=== PATIENT | female | born 1970 | race Caucasian/White ===

== ENCOUNTER 2019-09-17 11:34 | Emergency (ER) | payer MEDICARE, MEDICAID, SELFPAY ==
[2019-09-17 11:33] VITALS: BP 141/83; PULSE 97; RESP 16; TEMP 36.6; O2SAT 96; BMI 41.5
[2019-09-17 11:39] VITALS: O2SAT 97
--- NOTE | 2019-09-17 11:45 | ED_ITS ---
Entered by Nimo Evans, acting as scribe for HPI - Syncope General: Chief Complaint: Syncope Stated Complaint: near syncope/possible seizure Time Seen by Provider: 09/17/19 12:11 History of Present Illness: HPI narrative: Reviewed chart with the midlevel. She is seen the patient will discharge patient with cystitis follow-up with primary care provider return if worsens PFSH ED PFSH: Statuses (acute, chronic, etc) shown below reflect problem list status as previously entered and may not be historically accurate Social History Smoking and tobacco status: current every day smoker Physical Exam Const: COMMON NORMALS: no apparent distress GENERAL APPEARANCE: cooperative and comfortable ORIENTATION/CONSCIOUSNESS: Yes awake Eye: COMMON NORMALS: PERRL, EOMs intact bilaterally, conjunctivae normal and no scleral icterus CONJUNCTIVA: Yes conjunctivae normal PUPIL: Yes PERRL Lymph: LYMPHATIC: no lymphadenopathy noted and no lymphedema noted Resp: COMMON NORMALS: normal respiratory effort, no retractions, no use of accessory muscles and clear to auscultation bilaterally AUSCULTATION: clear to auscultation bilaterally Cardio: COMMON NORMALS: regular rate, regular rhythm and no murmurs RATE: regular rate RHYTHM: regular rhythm Course Vital Signs: Vital signs: Vital Signs Temperature 98 F 09/17/19 11:33 Pulse Rate 100 09/17/19 14:28 Respiratory Rate 16 09/17/19 14:28 Blood Pressure 158/101 09/17/19 14:28 Pulse Oximetry 98 09/17/19 14:28 MDM - Syncope Lab Data: Labs: Lab Results 09/17/19 09/17/19 09/17/19 Range/Units 12:27 12:27 13:05 WBC 9.2 (4.0-10.0) 10^3/ uL RBC 4.47 (4.1-5.3) 10^6/u L Hgb 13.4 (11.5-15.3) g/dL Hct 40.6 (37.0-47.0) % MCV 90.8 (81-99) fL MCH 30.0 (28.0-34.0) pg MCHC 33.0 (30.0-36.0) g/dL RDW 13.8 (12.1-15.1) % Plt Count 274 (130-400) 10^3/c mm MPV 9.4 (7.4-10.4) fL Total Counted 100 (0-100) Segmented Neutroph ils 78 % Band Neutrophils 5.0 % Lymphocytes (Manua l) 15 % Monocytes (Manual) 2.0 % Absolute Monocytes 0.2 (0.1-0.6) 10^3/c mm Platelet Estimate Normal (Normal) Giant Platelets Trace Sodium (136-145) mmol/L Potassium (3.5-5.1) mmol/L Chloride (98-107) mmol/L Carbon Dioxide (22-29) mmol/L Anion Gap (5-19) BUN (6-20) mg/dL Creatinine (0.5-0.9) mg/dL GFR Calculation (90-130) mL/min Glucose (74-109) mg/dL Calcium (8.5-10.5) mg/dL Magnesium (1.7-2.3) mg/dL Total Bilirubin (0.15-1.2) mg/dL AST (0-32) U/L ALT (0-33) U/L Alkaline Phosphata se (35-105) IU/L Total Protein (6.6-8.7) g/dL Albumin (3.5-5.2) g/dL Globulin (1.3-4.6) g/dL Urine Color Yellow (Yellow) Urine Appearance Hazy A (CLEAR) Urine pH 5 (5-7) Ur Specific Gravit y 1.015 (1.005-1.030) Urine Protein Neg (Negative) Urine Glucose (UA) Norm (Normal) Urine Ketones Negative (Negative) Urine Occult Blood Neg (Negative) Urine Nitrate Positive H (Negative) Urine Bilirubin Neg (NEGATIVE) Urine Urobilinogen Norm (Negative) mg/dL Ur Leukocyte Sara ase 1+ H (Negative) Urine RBC 0-4 H (0-2) /hpf Urine WBC 15-25 H (0-5) /hpf Ur Squamous Epith Cells 5-10 H (0-5) Urine Bacteria 2+ H (NONE) Hyaline Casts Rare Coarse Granular Ca sts Rare /lpf Urine Mucus Trace Urine Opiates Scre en Negative (Negative) ng/mL Ur Barbiturates Sc reen Negative (Negative) ng/mL Ur Phencyclidine S crn Negative (Negative) ng/mL Ur Amphetamines Sc reen Positive H (Negative) ng/mL U Benzodiazepines Scrn Positive H (Negative) ng/mL Urine Cocaine Scre en Negative (Negative) ng/mL U Marijuana (THC) Screen Negative (Negative) ng/mL Ethyl Alcohol (0-10) mg/dL 09/17/19 Range/Units 13:05 WBC (4.0-10.0) 10^3/ uL RBC (4.1-5.3) 10^6/u L Hgb (11.5-15.3) g/dL Hct (37.0-47.0) % MCV (81-99) fL MCH (28.0-34.0) pg MCHC (30.0-36.0) g/dL RDW (12.1-15.1) % Plt Count (130-400) 10^3/c mm MPV (7.4-10.4) fL Total Counted (0-100) Segmented Neutroph ils % Band Neutrophils % Lymphocytes (Manua l) % Monocytes (Manual) % Absolute Monocytes (0.1-0.6) 10^3/c mm Platelet Estimate (Normal) Giant Platelets Sodium 139 (136-145) mmol/L Potassium 3.6 (3.5-5.1) mmol/L Chloride 102 (98-107) mmol/L Carbon Dioxide 25 (22-29) mmol/L Anion Gap 15.6 (5-19) BUN 7 (6-20) mg/dL Creatinine 0.8 (0.5-0.9) mg/dL GFR Calculation 75.6 L (90-130) mL/min Glucose 119 H (74-109) mg/dL Calcium 10.3 (8.5-10.5) mg/dL Magnesium 2.3 (1.7-2.3) mg/dL Total Bilirubin 0.5 (0.15-1.2) mg/dL AST 22 (0-32) U/L ALT 23 (0-33) U/L Alkaline Phosphata se 110 H (35-105) IU/L Total Protein 7.8 (6.6-8.7) g/dL Albumin 4.5 (3.5-5.2) g/dL Globulin 3.3 (1.3-4.6) g/dL Urine Color (Yellow) Urine Appearance (CLEAR) Urine pH (5-7) Ur Specific Gravit y (1.005-1.030) Urine Protein (Negative) Urine Glucose (UA) (Normal) Urine Ketones (Negative) Urine Occult Blood (Negative) Urine Nitrate (Negative) Urine Bilirubin (NEGATIVE) Urine Urobilinogen (Negative) mg/dL Ur Leukocyte Sara ase (Negative) Urine RBC (0-2) /hpf Urine WBC (0-5) /hpf Ur Squamous Epith Cells (0-5) Urine Bacteria (NONE) Hyaline Casts Coarse Granular Ca sts /lpf Urine Mucus Urine Opiates Scre en (Negative) ng/mL Ur Barbiturates Sc reen (Negative) ng/mL Ur Phencyclidine S crn (Negative) ng/mL Ur Amphetamines Sc reen (Negative) ng/mL U Benzodiazepines Scrn (Negative) ng/mL Urine Cocaine Scre en (Negative) ng/mL U Marijuana (THC) Screen (Negative) ng/mL Ethyl Alcohol < 10 (0-10) mg/dL Discharge Plan Discharge Patient Disposition: Home, Self-Care Clinical Impression: Syncope, near UTI (urinary tract infection) Qualifiers: Urinary tract infection type: acute cystitis Hematuria presence: without hematuria Qualified Code(s): N30.00 - Acute cystitis without hematuria Condition: Stable Prescriptions: New Macrobid 100 mg capsule 100 mg PO BID 5 Days Qty: 10 RF: 0 No Action ropinirole 1 mg tablet 1 mg PO BEDTIME RF: 0 citalopram 40 mg tablet 40 mg PO DAILY RF: 0 ibuprofen 800 mg tablet 800 mg PO TID PRN (Reason: pain) RF: 0 sumatriptan succinate 50 mg tablet 50 mg PO PRN PRN (Reason: Migraine Headache) RF: 0 hydrocodone-acetaminophen 10-325 mg tablet 1 tab PO QID PRN (Reason: Pain) RF: 0 alprazolam 0.5 mg tablet 0.5 mg PO BID PRN (Reason: anxiety) RF: 0 furosemide 20 mg tablet 20 mg PO DAILY RF: 0 zolpidem 10 mg tablet 10 mg PO BEDTIME RF: 0 oxybutynin chloride 5 mg tablet 5 mg PO BID RF: 0 topiramate 100 mg tablet 100 mg PO BID PRN (Reason: Headache) RF: 0 Lyrica 75 mg capsule 75 mg PO BID RF: 0 Discharge Orders: Discharge Order (Routine); Ordered 09/17/19 Ordered By: Brittany Coyle Referrals: Derrick Whitaker [Primary Care Provider] - (Please see for recheck) Discharge Diet: Usual diet Discharge Activity: Resume usual activity Patient Instructions: Methamphetamine Abuse (ED) Activity Restrictions/Additional Instructions: Please return to the ER with any worsening of symptoms Discharge Date/Time: 09/17/19 14:29 Coding Level of Care Code 

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
--- NOTE | 2019-09-17 12:18 | ECG_ITS ---
Measurements Intervals [place] Rate: 95 P: 74 IN: 170 QRS: 79 QRSD: 112 T: 46 QT: 378 QTc: 475 SINUS RHYTHM LOW QRS VOLTAGE IN PRECORDIAL LEADS [QRS DEFLECTION < 1.0 mV IN CHEST LEADS] MODERATE INTRAVENTRICULAR CONDUCTION DELAY [110+ ms QRS DURATION] No previous ECG available for comparison Electronically Signed On 09-17-2019 21:00:31 COMPUTER SCIENTIST by Denice Moreno M.D. [email or web address]
[2019-09-17 12:29] VITALS: BP 154/78; PULSE 98; O2SAT 96
[2019-09-17 13:09] LABS: Hematocrit 40.6 % (37.0-47.0); Hemoglobin 13.4 g/dL (11.5-15.3); Mean Corpuscular Volume 90.8 fL (81-99); Mean Platelet Volume 9.4 fL (7.4-10.4); Platelet Count 274 10^3/cmm (130-400); Red Blood Count 4.47 10^6/uL (4.1-5.3); Red Cell Distribution Width 13.8 % (12.1-15.1); White Blood Count 9.2 10^3/uL (4.0-10.0)
[2019-09-17 13:09] LABS: Urine Appearance Hazy (CLEAR); Urine Color Yellow (Yellow); pH Urine 5 (5-7)
[2019-09-17 13:10] LABS: Add Urine Microscopic? YES; Bilirubin Urine Neg (NEGATIVE); Blood Urine Neg (Negative); Glucose Urine UA Norm (Normal); Ketones Urine Negative (Negative); Leukocyte Esterase Urine 1+ (Negative); Nitrate Urine Positive (Negative); Protein Urine Neg (Negative); Specific Gravity, Urine 1.015 (1.005-1.030); Urobilinogen Urine Norm (Negative)
[2019-09-17 13:14] LABS: RBC Urine 0-4 /hpf (0-2); WBC Urine 15-25 /hpf (0-5)
[2019-09-17 13:15] LABS: Bacteria Urine 2+; Mucus Urine TRACE
[2019-09-17 13:16] LABS: Add Urine Culture? Yes; Coarse Granular Casts Urine RARE /lpf; Hyaline Casts Urine RARE
[2019-09-17 13:17] LABS: Barbiturates Screen Urine Negative (Negative); Benzodiazepines Screen Urine Positive (Negative); Cocaine Screen Urine Negative (Negative); Opiate Screen Urine Negative (Negative); PCP Screen Urine Negative (Negative); THC Screen Urine Negative (Negative)
[2019-09-17 13:21] LABS: Amphetamines Screen Urine Positive (Negative)
[2019-09-17 13:25] LABS: Absolute Segmented Neutrophil 7.1 10/cmm (1.6-7.1); Band Neutrophils Absolute 0.5 10^3/cmm (0.0-1.2); Giant Platelets Trace; Lymphocytes 15 %; Monocytes Absolute 0.2 10^3/cmm (0.1-0.6); Platelet Estimate Normal (Normal); Segmented Neutrophils 78 %; Total Cells Counted 100 (0-100)
[2019-09-17 13:27] LABS: Alanine Aminotransferase 23 U/L (0-33); Albumin Level 4.5 g/dL (3.5-5.2); Alkaline Phosphatase 110 IU/L (35-105); Anion Gap 15.6 (5-19); Aspartate Amino Transferase 22 U/L (0-32); Blood Urea Nitrogen 7 mg/dL (6-20); Calcium 10.3 mg/dL (8.5-10.5); Carbon Dioxide 25 mmol/L (22-29); Chloride 102 mmol/L (98-107); Globulin 3.3 g/dL (1.3-4.6); Glomerular Filtration Rate 75.6 mL/min (90-130); Glucose 119 mg/dL (74-109); Magnesium 2.3 mg/dL (1.7-2.3); Potassium 3.6 mmol/L (3.5-5.1); Sodium 139 mmol/L (136-145); Total Bilirubin 0.5 mg/dL (0.15-1.2); Total Protein 7.8 g/dL (6.6-8.7)
[2019-09-17 13:35] LABS: Alcohol Level < 10 mg/dL (0-10)
[2019-09-17 14:05] VITALS: BP 158/103; PULSE 103; RESP 14; O2SAT 96
[2019-09-17 14:28] VITALS: BP 158/101; PULSE 100; RESP 16; O2SAT 98
== END 2019-09-17 14:29 | disposition home or self-care (01) ==
PROVIDERS: Emergency Provider Registered Nurse; Family Provider Family Medicine; PCP Family Medicine
DX: R55 Syncope and collapse (principal); N30.00 Acute cystitis without hematuria; F17.210 Nicotine dependence, cigarettes, uncomplicated
CPT/HCPCS: 80053; 80307; 81001; 83735; 85007; 85027; 87077; 87086; 87186; 93005; 99283; A9270

== ENCOUNTER 2019-09-21 06:35 | Emergency (ER) | payer MEDICARE, MEDICAID, SELFPAY ==
[2019-09-21 06:36] VITALS: PULSE 67; RESP 16; TEMP 36.8; O2SAT 96; BMI 43.2
--- NOTE | 2019-09-21 06:38 | W.ED.GENADLT ---
HPI - General Adult General: Chief complaint: Abdominal Pain Stated complaint: ABD PAIN Time Seen by Provider: 09/21/19 06:38 History of Present Illness: HPI narrative: 49-year-old female presents complaining of right lower quadrant abdominal pain that began overnight she had a single episode of diarrhea denies hematochezia melena hematemesis coffee-ground emesis denies dysuria urgency or frequency she was doing well up until going to bed last night. Associated symptoms: Deny chest pain, dyspnea, malaise, nausea, rash or vomiting Review of Systems Const: Denies: fever, chills, body aches, change in appetite, fatigue or malaise ENMT: Denies: throat pain, ear pain, nasal discharge or nasal congestion Card: Denies: chest pain, edema, shortness of breath on exertion or shortness of breath when lying down Resp: Denies: shortness of breath, productive cough or non-productive cough GI: Denies: abdominal pain, nausea, vomiting, vomiting blood, coffee grounds in vomit, diarrhea, constipation, bloating, blood in stool or black tarry stool : Denies: flank pain, difficulty urinating, painful urination, urinary frequency or urinary urgency Skin/Breast: Denies: rash or itching PFSH ED PFSH: Statuses (acute, chronic, etc) shown below reflect problem list status as previously entered and may not be historically accurate Medical History History of uterine fibroid (Acute) Surgical History H/O hysterectomy for benign disease (Acute) History of cholecystectomy (Acute) History of total right hip arthroplasty (Acute) Social History Smoking and tobacco status: current every day smoker Physical Exam Const: COMMON NORMALS: no apparent distress GENERAL APPEARANCE: cooperative and comfortable ORIENTATION/CONSCIOUSNESS: Yes awake, Yes oriented to person, Yes oriented to place and Yes oriented to time HENMT: COMMON NORMALS: normocephalic, head/scalp atraumatic, hearing grossly normal bilaterally, external ears normal, EAC's normal, TM's normal bilaterally, nasal mucous membranes and turbinates normal, moist oral mucous membranes and oropharynx normal HEAD & SCALP: normocephalic and atraumatic NOSE: nasal mucous membranes and turbinates normal EXTERNAL EAR: Yes external ears normal EXTERNAL AUDITORY CANAL: EAC's normal TYMPANIC MEMBRANE: TM's normal bilaterally Eye: COMMON NORMALS: PERRL, EOMs intact bilaterally, conjunctivae normal and no scleral icterus CONJUNCTIVA: Yes conjunctivae normal PUPIL: Yes PERRL Neck/C-Spine: COMMON NORMALS: full ROM, no lymphadenopathy, supple and no JVD Lymph: LYMPHATIC: no lymphadenopathy noted and no lymphedema noted Resp: COMMON NORMALS: normal respiratory effort, no retractions, no use of accessory muscles and clear to auscultation bilaterally AUSCULTATION: clear to auscultation bilaterally Cardio: COMMON NORMALS: no JVD, regular rate, regular rhythm and no murmurs RATE: regular rate RHYTHM: regular rhythm GI: COMMON NORMALS: soft to palpation and no hepatosplenomegaly INSPECTION: Yes pannus present AUSCULTATION: Yes normoactive bowel sounds PALPATION: Yes soft, No tender, No guarding and Yes no hepatosplenomegaly RECTAL EXAM: tenderness Extremity: COMMON NORMALS: normal to inspection, normal capillary refill, no clubbing, cyanosis or edema, no calf tenderness and no pedal edema Neuro: SENSORIUM/ORIENTATION: Yes oriented to person, Yes oriented to place and Yes oriented to time Skin: COMMON NORMALS: no rashes or lesions noted GENERAL SKIN EXAM: no rashes or lesions noted Course ED course: Discussed findings with the patient will start on tamsulosin and Zofran she does not of signs of infection. Already has hydrocodone to use for pain we will set her up to see Dr. Friend. Vital Signs: Vital signs: Vital Signs Temperature 98.3 F 09/21/19 06:36 Pulse Rate 70 09/21/19 10:02 Respiratory Rate 16 09/21/19 10:02 Blood Pressure 145/67 09/21/19 10:02 Pulse Oximetry 93 09/21/19 10:02 MDM - General Adult Lab Data: Labs: Lab Results 09/21/19 09/21/19 09/21/19 Range/Units 06:00 06:00 08:44 WBC 7.9 (4.0-10.0) 10^3/ uL RBC 4.09 L (4.1-5.3) 10^6/u L Hgb 12.4 (11.5-15.3) g/dL Hct 37.4 (37.0-47.0) % MCV 91.4 (81-99) fL MCH 30.3 (28.0-34.0) pg MCHC 33.2 (30.0-36.0) g/dL RDW 13.6 (12.1-15.1) % Plt Count 259 (130-400) 10^3/c mm MPV 10.4 (7.4-10.4) fL Neut % (Auto) 67.2 % Lymph % (Auto) 25.2 % [place] % (Auto) 5.7 % Eos % (Auto) 1.1 % Baso % (Auto) 0.5 % Neut # (Auto) 5.3 (1.8-7.7) 10^3/u L Lymph # (Auto) 2.0 (0.8-4.8) 10^3/u L [place] # (Auto) 0.5 (0.2-0.9) 10^3/u L Eos # (Auto) 0.1 (0.0-0.8) 10^3/u L Baso # (Auto) 0.0 (0.0-0.1) 10^3/u L Nucleated RBC % (a uto) 0 % Nucleated RBCs # 0.0 /100WBC Sodium 140 (136-145) mmol/L Potassium 3.4 L (3.5-5.1) mmol/L Chloride 101 (98-107) mmol/L Carbon Dioxide 24 (22-29) mmol/L Anion Gap 18.4 (5-19) BUN 6 (6-20) mg/dL Creatinine 0.6 (0.5-0.9) mg/dL GFR Calculation 105.4 (90-130) mL/min Glucose 151 H (65-115) mg/dL Calcium 9.5 (8.5-10.5) mg/dL Total Bilirubin 0.3 (0.15-1.2) mg/dL AST 20 (0-32) U/L ALT 20 (0-33) U/L Alkaline Phosphata se 88 (35-105) IU/L Total Protein 6.6 (6.6-8.7) g/dL Albumin 4.0 (3.5-5.2) g/dL Globulin 2.6 (1.3-4.6) g/dL Lipase 26 (13-60) U/L Urine Color Yellow (Yellow) Urine Appearance Clear (CLEAR) Urine pH 5.0 (5-7) Ur Specific Gravit y 1.015 (1.005-1.030) Urine Protein Trace (Negative) Urine Glucose (UA) Norm (Normal) Urine Ketones Negative (Negative) Urine Occult Blood Neg (Negative) Urine Nitrate Negative (Negative) Urine Bilirubin Neg (NEGATIVE) Urine Urobilinogen Norm (Negative) mg/dL Ur Leukocyte Sara ase Negative (Negative) Urine RBC None (0-2) /hpf Urine WBC None (0-5) /hpf Ur Squamous Epith Cells 0-4 H (0-5) Urine Bacteria Trace (NONE) Urine Mucus Trace Discharge Plan Discharge Patient Disposition: Home, Self-Care Clinical Impression: Calculus of kidney Condition: Stable Prescriptions: New tamsulosin 0.4 mg capsule 0.4 mg PO DAILY Qty: 20 RF: 0 Zofran 4 mg tablet 4 mg PO Q6H PRN (Reason: nausea and vomiting) Qty: 20 RF: 0 No Action ropinirole 1 mg tablet 1 mg PO BEDTIME RF: 0 citalopram 40 mg tablet 40 mg PO DAILY RF: 0 ibuprofen 800 mg tablet 800 mg PO TID PRN (Reason: pain) RF: 0 sumatriptan succinate 50 mg tablet 50 mg PO PRN PRN (Reason: Migraine Headache) RF: 0 hydrocodone-acetaminophen 10-325 mg tablet 1 tab PO QID PRN (Reason: Pain) RF: 0 alprazolam 0.5 mg tablet 0.5 mg PO BID PRN (Reason: anxiety) RF: 0 furosemide 20 mg tablet 20 mg PO DAILY RF: 0 zolpidem 10 mg tablet 10 mg PO BEDTIME RF: 0 oxybutynin chloride 5 mg tablet 5 mg PO BID RF: 0 topiramate 100 mg tablet 100 mg PO BID PRN (Reason: Headache) RF: 0 Lyrica 75 mg capsule 75 mg PO BID RF: 0 Macrobid 100 mg capsule 100 mg PO BID 5 Days Qty: 10 RF: 0 Discharge Orders: Discharge Order (Routine); Ordered 09/21/19 Ordered By: Ezekiel Guardado Referrals: Friend,Spenser, MD [Physician] - (Follow up on renal stone) Discharge Diet: Usual diet Discharge Activity: Resume usual activity Discharge Date/Time: 09/21/19 10:03 Coding Level of Care Code ED Stained Glass Joiner for Nasimg Fwd 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
--- NOTE | 2019-09-21 06:45 | PC.NURSE ---
Patient states that her lower right quadrant on her abdomen started hurting today at 0300. Patient states that the pain kept getting worse. Patient is rating pain 4/10.
[2019-09-21 06:47] VITALS: BP 154/71; PULSE 66; RESP 14; O2SAT 92
--- NOTE | 2019-09-21 06:54 | CTR_ITS ---
PROCEDURE INFORMATION: Exam: CT Abdomen And Pelvis With Contrast Exam date and time: 09/21/2019 7:11 AM Age: 49 years old Clinical indication: Abdominal pain; Localized; Right; Prior surgery; Surgery date: 6+ months; Surgery type: Gastric sleeve choley hyst; Additional info: Abd pain TECHNIQUE: Imaging protocol: Computed tomography of the abdomen and pelvis with intravenous contrast. Total DLP: 2069.56 mGy-cm Radiation optimization: All CT scans at this facility use at least one of these dose optimization techniques: automated exposure control; mA and/or kV adjustment per patient size (includes targeted exams where dose is matched to clinical indication); or iterative reconstruction. Contrast material: OMNI; Contrast volume: 95 ml; Contrast route: IV; COMPARISON: No relevant prior studies available. FINDINGS: Liver: Normal. No mass. Gallbladder and bile ducts: Normal. No calcified stones. No ductal dilation. Pancreas: Normal. No ductal dilation. Spleen: Normal. No splenomegaly. Adrenals: Normal. No mass. Kidneys and ureters: 4 mm calcification mid pole right kidney hydronephrosis and hydroureter secondary to a calcification within the distal ureter proximal to the right ureterovesical junction measuring approximately 5 mm. Stomach and bowel: Prior gastric stapling along the greater curvature. Appendix: What is believed to be the appendix is normal in appearance. Nevertheless, there is no discrete evidence of appendicitis. Intraperitoneal space: No free fluid within the pelvis or within the dependent portions of the peritoneum. Vasculature: Unremarkable. No abdominal aortic aneurysm. Lymph nodes: Unremarkable. No enlarged lymph nodes. Bladder: Unremarkable as visualized. Reproductive: Prior hysterectomy. Bones/joints: Hip arthroplasty on the right. Metallic artifact henders characterization of the pelvic structures. Soft tissues: Unremarkable. Other findings: No acute intra-abdominal process. No inflammatory process. No obstruction. CT/CT abdomen pelvis w con* [id number] IMPRESSION: 1. Hydronephrosis and hydroureter secondary to a calcification within the distal ureter proximal to the right ureterovesical junction measuring approximately 5 mm. 2. No acute intra-abdominal process. No inflammatory process. No obstruction. 3. No free fluid within the pelvis or within the dependent portions of the peritoneum. Radiation Dose CTDIVOL = (mGy): DLP = 2069.56 (mGy-cm)
[2019-09-21 07:11] VITALS: BP 152/61
[2019-09-21] MEDS: iohexol 300 mg/mL 100 mL Btl 95 ML IV (07:13)
[2019-09-21 07:18] LABS: Basophils % 0.5 %; Eosinophils # 0.1 10^3/uL (0.0-0.8); Eosinophils % 1.1 %; Hematocrit 37.4 % (37.0-47.0); Hemoglobin 12.4 g/dL (11.5-15.3); Lymphocytes % 25.2 %; Mean Corpuscular HGB Conc 33.2 g/dL (30.0-36.0); Mean Corpuscular Hemoglobin 30.3 pg (28.0-34.0); Mean Corpuscular Volume 91.4 fL (81-99); Mean Platelet Volume 10.4 fL (7.4-10.4); Monocytes # 0.5 10^3/uL (0.2-0.9); Monocytes % 5.7 %; Neutrophils # 5.3 10^3/uL (1.8-7.7); Neutrophils % 67.2 %; Nucleated Red Blood Cells % 0 %; Platelet Count 259 10^3/cmm (130-400); Red Blood Count 4.09 10^6/uL (4.1-5.3); Red Cell Distribution Width 13.6 % (12.1-15.1); White Blood Count 7.9 10^3/uL (4.0-10.0)
[2019-09-21 07:25] VITALS: RESP 20
[2019-09-21] MEDS: morphine 4 mg/mL SDV 1 mL IVP (07:25)
[2019-09-21] MEDS: ondansetron 2 mg/ML SDV 2 mL 4 MG IVP (07:25)
[2019-09-21] MEDS: sodium chloride 0.9% 1,000 ML 999 ML IV (07:25)
[2019-09-21 07:45] VITALS: PULSE 72; RESP 15; O2SAT 93
[2019-09-21 07:45] LABS: Alanine Aminotransferase 20 U/L (0-33); Alkaline Phosphatase 88 IU/L (35-105); Anion Gap 18.4 (5-19); Aspartate Amino Transferase 20 U/L (0-32); Blood Urea Nitrogen 6 mg/dL (6-20); Calcium 9.5 mg/dL (8.5-10.5); Carbon Dioxide 24 mmol/L (22-29); Chloride 101 mmol/L (98-107); Globulin 2.6 g/dL (1.3-4.6); Glomerular Filtration Rate 105.4 mL/min (90-130); Glucose 151 mg/dL (65-115); Lipase 26 U/L (13-60); Potassium 3.4 mmol/L (3.5-5.1); Sodium 140 mmol/L (136-145); Total Bilirubin 0.3 mg/dL (0.15-1.2); Total Protein 6.6 g/dL (6.6-8.7)
[2019-09-21 09:51] LABS: Add Urine Microscopic? YES; Bilirubin Urine Neg (NEGATIVE); Blood Urine Neg (Negative); Glucose Urine UA Norm (Normal); Ketones Urine Negative (Negative); Leukocyte Esterase Urine Negative (Negative); Nitrate Urine Negative (Negative); Protein Urine Trace (Negative); Specific Gravity, Urine 1.015 (1.005-1.030); Urine Appearance Clear (CLEAR); Urine Color Yellow (Yellow); Urobilinogen Urine Norm (Negative)
[2019-09-21 10:01] LABS: Add Urine Culture? No; Bacteria Urine TRACE; Mucus Urine TRACE; Squamous Epithelial Cell Urine 0-4 (0-5)
[2019-09-21 10:02] VITALS: BP 145/67; PULSE 70; RESP 16; O2SAT 93
--- NOTE | 2019-09-24 10:40 | DCPLANNER ---
optical engineering manager had message to schedule a follow up appointment for patient with Dr. Friend. optical engineering manager called the office of Dr. Friend, spoke with Nikole. optical engineering manager gave clinic patients information, was told that patients information would be printed and given to Faustina for review. Clinic will call patient with appointment information, cyanide case hardener will call for appointment information.
--- NOTE | 2019-09-28 14:54 | DCPLANNER ---
pst manager called the office of Dr. Friend, to confirm if a follow up appointment had been scheduled. pst manager was told that the appointment had been cancelled, due to patient not needing to see Dr. Friend at this time.
== END 2019-09-21 10:03 | disposition home or self-care (01) ==
PROVIDERS: Emergency Provider Family Medicine; Family Provider Family Medicine; PCP Family Medicine
DX: N20.0 Calculus of kidney (principal); F17.210 Nicotine dependence, cigarettes, uncomplicated
CPT/HCPCS: 74177; 80053; 81001; 83690; 85025; 96360; 96361; 96374; 96375; 99283; A9270; J2270; J2405; J7030; Q9967

== ENCOUNTER 2020-03-02 14:00 | Emergency (ER) | payer OTHER, MEDICARE, MEDICAID, SELFPAY ==
[2020-03-02 14:02] VITALS: BMI 47.4
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
[2020-03-02 14:15] VITALS: BP 156/69; PULSE 67; RESP 15; O2SAT 94
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
[2020-03-02 15:25] VITALS: BP 128/71; PULSE 73; RESP 16; O2SAT 95
== END 2020-03-02 15:26 | disposition home or self-care (01) ==
PROVIDERS: Emergency Provider Family Medicine; PCP Family Medicine
DX: G89.11 Acute pain due to trauma (principal); M25.511 Pain in right shoulder; Z96.611 Presence of right artificial shoulder joint; V89.2XXA Person injured in unspecified motor-vehicle accident, traffic, initial encounter; F17.210 Nicotine dependence, cigarettes, uncomplicated
CPT/HCPCS: 12345; 73030; 99283

== ENCOUNTER 2020-03-21 08:08 | Outpatient (CLI) | payer MEDICARE, MEDICAID, SELFPAY ==
--- NOTE | 2020-03-21 | CT_ITS ---
NOTE: Report was unsigned for reason: Order was edited. Original Signature date and time was: 03/21/20 @ 0944 WS: [id number] NONCONTRAST CT OF THE RIGHT SHOULDER TECHNIQUE: Noncontrast CT right shoulder with coronal and sagittal reformatted images. CLINICAL INFORMATION: HX OF RIGHT SHOULDER REPLACEMENT COMPARISON: None. DLP: 916.[address] scans at [facility] use at least one of these dose optimization techniques: automated exposure control; mA and/or kV adjustment per patient size (includes targeted exams where dose is matched to clinical indication); or iterative reconstruction. FINDINGS: Images degraded by beam hardening artifact from hardware. Reversed right shoulder arthroplasty appears in good position. Normal glenoid and humeral component. No dislocation. Hardware appears well seated. Glenoid and humeral components appear well seated. Distal clavicle appears normal. Normal AC joint. Subacromial space is well-preserved. TINY NONDISPLACED FRACTURE INVOLVING THE ANTERIOR LATERAL ACROMION. No evidence of healing. Subacromial space preserved. Mild degenerative arthritis AC joint. No other visualized fractures. Right lung is well aerated. No axillary lymphadenopathy. [facility] CT/CT shoulder RT wo con* [id number] IMPRESSION: 1. Images degraded by beam [place] artifact from arthroplasty. 2. Reversed right total shoulder arthroplasty appears in good position. No dis location. No hardware loosening. 3. Distal clavicle is normal. 4. Small nondisplaced hairline fracture involving the anterior lateral aspect of the acromion. No evidence of interval healing.
== END 2020-03-21 08:09 | disposition home or self-care (01) ==
LOC: RADWPI 08:14
PROVIDERS: PCP Family Medicine; Visit Provider Orthopaedic Surgery
DX: Z96.611 Presence of right artificial shoulder joint (principal); S42.124A Nondisplaced fracture of acromial process, right shoulder, initial encounter for closed fracture; X58.XXXA Exposure to other specified factors, initial encounter
CPT/HCPCS: 73200

== ENCOUNTER 2020-10-18 20:25 | Emergency (ER) | payer MEDICARE, MEDICAID, SELFPAY ==
[2020-10-18] VITALS (8 sets, daily range): BP systolic 148–192; BP diastolic 60–94; PULSE 84–106; RESP 18–26; TEMP 36.7; O2SAT 97–99; BMI 49.9
--- NOTE | 2020-10-18 20:38 | ED_ITS ---
HPI - Syncope General: Chief Complaint: Syncope Stated Complaint: PASSED OUT Time Seen by Provider: 10/18/20 20:33 Source: patient Mode of arrival: EMS Limitations: no limitations History of Present Illness: HPI narrative: Patient is a 50-year-old female who presents to ED today via EMS for complaints of a passing out episode. The patient tells me that she was riding the backseat of a vehicle when episode happened. She tells me they were on their way to release balloons in honor/remembrance of her boyfriend who a few months ago. Patient tells me she does not remember anything regarding the incident but states a friend told her that she had passed out in the backseat. She thinks maybe she got anxious and passed out. Patient denies any feelings of lightheadedness or dizziness. No chest pain or shortness of breath. She does tell me she did methamphetamine this morning around 5:30 AM. Patient upon arrival to the ED has no complaints. She states she feels completely normal. MD complaint: loss of consciousness Onset (ago): hour(s) Duration of episode: 5 -: minutes(s) Prodromal symptoms: none Witnessed: Yes - by Bystander Context: at rest and illicit drug use Injuries sustained associated with event: none Associated symptoms: Reports no associated symptoms; Deny abdominal pain, chest pain, fever(s), headache(s), lightheadedness, nausea or vertigo Treatments prior to arrival: none Review of Systems Const: Denies: fever(s), chills, body aches, fatigue or malaise Eyes: Denies: change in vision or blurry vision Card: Reports: syncope; Denies: chest pain, palpitations, irregular heart rhythm, edema, swelling of feet/ankles, lightheadedness, pre-syncope, dyspnea on exertion, orthopnea, leg pain with exertion or acrocyanosis Resp: Denies: dyspnea, productive cough, pain on inspiration, hemoptysis or chest congestion GI: Denies: abdominal pain, nausea, vomiting, heartburn or diarrhea : Denies: flank pain, difficulty voiding, dysuria, urinary frequency, urinary urgency or urinary hesitancy Musc: Denies: neck pain, back pain, extremity pain, extremity swelling, joint pain or joint swelling Skin/Breast: Denies: rash Neuro: Denies: headache(s), numbness in extremities, weakness in extremities, sensory changes, lack of coordination, difficulty walking, frequent falls, dizziness, vertigo, confusion, behavioral changes, Slurred speech present, difficulty communicating thoughts or seizure-like activity PFSH ED PFSH: Medical History (Updated 10/18/20 @ 22:00 by RUSLAN Chaparro) History of uterine fibroid Surgical History (Updated 03/10/20 @ 00:00 by ) H/O hysterectomy for benign disease History of cholecystectomy History of total right hip arthroplasty Social History Smoking and tobacco status: current every day smoker Physical Exam Const: COMMON NORMALS: no acute distress, patient oriented x3, no limitations and alert GENERAL APPEARANCE: cooperative NUTRITIONAL APPEARANCE: obese ORIENTATION/CONSCIOUSNESS: Yes awake, Yes oriented to person, Yes oriented to place and Yes oriented to time HENMT: COMMON NORMALS: normocephalic and atraumatic HEAD & SCALP: normocephalic and atraumatic Eye: COMMON NORMALS: Equal, round and reactive pupils present and EOMs intact bilaterally GENERAL EYE: appearance normal, both eyes and all related structures PUPIL: Yes Equal, round and reactive pupils present Neck/C-Spine: COMMON NORMALS: full ROM, no lymphadenopathy and no meningeal signs Resp: COMMON NORMALS: normal respiratory effort and clear to auscultation bilaterally AUSCULTATION: clear to auscultation bilaterally Cardio: COMMON NORMALS: regular rate and regular rhythm RATE: regular rate RHYTHM: regular rhythm GI: COMMON NORMALS: Normal to inspection, nondistended, normoactive bowel sounds present, Soft to palpation, non-tender, No hepatosplenomegaly present and no masses PALPATION: Yes Soft to palpation and Yes No hepatosplenomegaly present : COMMON NORMALS: Yes no CVA tenderness BLADDER/KIDNEY EXAM: Yes no CVA tenderness Back/Pelvis: COMMON NORMALS: no CVA tenderness Neuro: OMKAR COMA SCALE: document GCS findings [place] coma scale eye opening: Spontaneous Omkar coma scale verbal response: Orientated Omkar coma scale motor response: Obey commands Omkar coma scale total score: 15 COMMON NORMALS: patient oriented x3, CN's II-XII intact bilaterally, moves all extremities, no focal motor deficits, no sensory deficits noted and gait normal SENSORIUM/ORIENTATION: Yes alert, Yes oriented to person, Yes oriented to place and Yes oriented to time MENINGEAL SIGNS: Yes no meningeal signs Skin: COMMON NORMALS: no rashes or lesions noted GENERAL SKIN EXAM: no rashes or lesions noted Course Vital Signs: Vital signs: Vital Signs Temperature 98.1 F 10/18/20 20:29 Pulse Rate 106 H 10/18/20 22:11 Respiratory Rate 18 10/18/20 22:11 Blood Pressure 188/93 10/18/20 22:11 Pulse Oximetry 97 10/18/20 22:11 MDM - Syncope MDM Narrative: Medical decision making narrative: Patient has no physical complaints on her visit. Her CBC and CMP are non-concerning. Her UA looks positive for a UTI therefore we will go ahead and treat this. Tox screen is positive for amphetamines and benzodiazepines. She is noted to be hypertensive throughout her visit. Patient tells me she has chronic hypertension that has been untreated. She is requesting to be placed on medication for this. We will place on 10 mg lisinopril-recommend keeping a blood pressure log and following up with primary care so they may adjust as needed. She was shown at a few points during her visit to have PVCs on her monitor. Patient states she has never had issues with dizziness or palpitations or chest pains. This too can be followed up with her primary care provider. Strict return to ED precautions given. Lab Data: Labs: Lab Results 10/18/20 10/18/20 10/18/20 Range/Units 20:30 20:30 20:30 WBC 7.4 (4.0-10.0) 10^3/ uL RBC 4.64 (4.1-5.3) 10^6/u L Hgb 12.7 (11.5-15.3) g/dL Hct 40.7 (37.0-47.0) % MCV 87.7 (81-99) fL MCH 27.4 L (28.0-34.0) pg MCHC 31.2 (30.0-36.0) g/dL RDW 15.1 (12.1-15.1) % Plt Count 279 (130-400) 10^3/c mm MPV 10.2 (7.4-10.4) fL Neut % (Auto) 67.9 % Lymph % (Auto) 25.0 % [place] % (Auto) 5.5 % Eos % (Auto) 0.8 % Baso % (Auto) 0.5 % Neut # (Auto) 5.02 (1.8-7.7) 10^3/u L Lymph # (Auto) 1.9 (0.8-4.8) 10^3/u L [place] # (Auto) 0.4 (0.2-0.9) 10^3/u L Eos # (Auto) 0.1 (0.0-0.8) 10^3/u L Baso # (Auto) 0.0 (0.0-0.1) 10^3/u L Nucleated RBC % (a uto) 0 % Nucleated RBCs # 0.0 /100WBC Sodium 140 (136-145) mmol/L Potassium 3.7 (3.5-5.1) mmol/L Chloride 101 (98-107) mmol/L Carbon Dioxide 24 (22-29) mmol/L Anion Gap 18.7 (5-19) BUN 12 (6-20) mg/dL Creatinine 0.8 (0.5-0.9) mg/dL GFR Calculation 75.3 L (90-130) mL/min Glucose 116 H (65-115) mg/dL Calculated Osmolal ity 291 (285-295) mOsm/k g Calcium 10.0 (8.5-10.5) mg/dL Total Bilirubin 0.5 (0.15-1.2) mg/dL AST 21 (0-32) U/L ALT 25 (0-33) U/L Alkaline Phosphata se 115 H (35-105) IU/L Troponin T Baselin e 9 (0-10) ng/L Total Protein 7.7 (6.6-8.7) g/dL Albumin 4.8 (3.5-5.2) g/dL Globulin 2.9 (1.3-4.6) g/dL Urine Color (Yellow) Urine Appearance (CLEAR) Urine pH (5-7) Ur Specific Gravit y (1.005-1.030) Urine Protein (Negative) Urine Glucose (UA) (Normal) Urine Ketones (Negative) Urine Blood (Negative) Urine Nitrate (Negative) Urine Bilirubin (Negative) Urine Urobilinogen (Negative) mg/dL Ur Leukocyte Sara ase (Negative) Urine RBC (0-2) /hpf Urine WBC (0-5) /hpf Ur Squamous Epith Cells (0-5) /hpf Amorphous Sediment Urine Bacteria (NONE) /hpf Urine Opiates Scre en (Negative) ng/mL Ur Barbiturates Sc reen (Negative) ng/mL Ur Phencyclidine S crn (Negative) ng/mL Ur Amphetamines Sc reen (Negative) ng/mL U Benzodiazepines Scrn (Negative) ng/mL Urine Cocaine Scre en (Negative) ng/mL U Marijuana (THC) Screen (Negative) ng/mL 10/18/20 10/18/20 Range/Units 21:27 21:27 WBC (4.0-10.0) 10^3/ uL RBC (4.1-5.3) 10^6/u L Hgb (11.5-15.3) g/dL Hct (37.0-47.0) % MCV (81-99) fL MCH (28.0-34.0) pg MCHC (30.0-36.0) g/dL RDW (12.1-15.1) % Plt Count (130-400) 10^3/c mm MPV (7.4-10.4) fL Neut % (Auto) % Lymph % (Auto) % [place] % (Auto) % Eos % (Auto) % Baso % (Auto) % Neut # (Auto) (1.8-7.7) 10^3/u L Lymph # (Auto) (0.8-4.8) 10^3/u L [place] # (Auto) (0.2-0.9) 10^3/u L Eos # (Auto) (0.0-0.8) 10^3/u L Baso # (Auto) (0.0-0.1) 10^3/u L Nucleated RBC % (a uto) % Nucleated RBCs # /100WBC Sodium (136-145) mmol/L Potassium (3.5-5.1) mmol/L Chloride (98-107) mmol/L Carbon Dioxide (22-29) mmol/L Anion Gap (5-19) BUN (6-20) mg/dL Creatinine (0.5-0.9) mg/dL GFR Calculation (90-130) mL/min Glucose (65-115) mg/dL Calculated Osmolal ity (285-295) mOsm/k g Calcium (8.5-10.5) mg/dL Total Bilirubin (0.15-1.2) mg/dL AST (0-32) U/L ALT (0-33) U/L Alkaline Phosphata se (35-105) IU/L Troponin T Baselin e (0-10) ng/L Total Protein (6.6-8.7) g/dL Albumin (3.5-5.2) g/dL Globulin (1.3-4.6) g/dL Urine Color Yellow (Yellow) Urine Appearance Sl hazy (CLEAR) Urine pH 5 (5-7) Ur Specific Gravit y 1.030 (1.005-1.030) Urine Protein 1+ H (Negative) Urine Glucose (UA) Norm (Normal) Urine Ketones 1+ H (Negative) Urine Blood 2+ H (Negative) Urine Nitrate Positive H (Negative) Urine Bilirubin 1+ H (Negative) Urine Urobilinogen 1 H (Negative) mg/dL Ur Leukocyte Sara ase 1+ H (Negative) Urine RBC 15-25 H (0-2) /hpf Urine WBC 25-40 H (0-5) /hpf Ur Squamous Epith Cells 0-4 H (0-5) /hpf Amorphous Sediment Not Reportable Urine Bacteria 3+ H (NONE) /hpf Urine Opiates Scre en Negative (Negative) ng/mL Ur Barbiturates Sc reen Negative (Negative) ng/mL Ur Phencyclidine S crn Negative (Negative) ng/mL Ur Amphetamines Sc reen Positive H (Negative) ng/mL U Benzodiazepines Scrn Positive H (Negative) ng/mL Urine Cocaine Scre en Negative (Negative) ng/mL U Marijuana (THC) Screen Negative (Negative) ng/mL Imaging Data^: CT Head: Radiologist's impression: [facility] [address] [facility] [place] [address] CT Scan Report Signed Patient: Mervin Reyes Unit #: [id number] : 1970 Age/Sex: 50 / F ADM Date: 10/18/20 Loc: ER Room/Bed: Attending Dr: Ordering Provider/Ordering MD: Lucretia Tamez Date of Service: 10/18/20 Procedure(s): CT head wo con* [id number] Accession Number(s): [id number] Report Number: [id number] PROCEDURE INFORMATION: Exam: CT Head Without Contrast Exam date and time: 10/18/2020 8:41 PM Age: 50 years old Clinical indication: Syncope and collapse TECHNIQUE: Imaging protocol: Computed tomography of the head without contrast. Radiation optimization: All CT scans at this facility use at least one of these dose optimization techniques: automated exposure control; mA and/or kV adjustment per patient size (includes targeted exams where dose is matched to clinical indication); or iterative reconstruction. COMPARISON: No relevant prior studies available. RADIATION DOSE METRICS: Total DLP (mGy-cm): 875.29 FINDINGS: Brain: Normal. No hemorrhage. Unremarkable white matter. No mass effect. Cerebral ventricles: No ventriculomegaly. Bones/joints: Unremarkable. No acute fracture. Paranasal sinuses: Visualized sinuses are unremarkable. No fluid levels. Mastoid air cells: Visualized mastoid air cells are well aerated. Soft tissues: Unremarkable. CT/CT head wo con* [id number] IMPRESSION: No acute intracranial abnormality. Radiation Dose CTDIVOL = (mGy): DLP = 875.29 (mGy-cm) Dictated By: Eleni Ivey MD Signed By: Eleni Ivey MD Signed Date/Time: 10/18/202125 DD/ 24 CXR: Radiologist's impression: [address] [address] XRay Report Signed Patient: Mervin Reyes Unit #: [id number] : 1970 Age/Sex: 50 / F ADM Date: 10/18/20 Loc: ER Room/Bed: Attending Dr: Ordering Provider/Ordering MD: Lucretia Tamez Date of Service: 10/18/20 Procedure(s): XR chest 1V portable [id number] Accession Number(s): [id number] Report Number: [id number] PROCEDURE INFORMATION: Exam: XR Chest Exam date and time: 10/18/2020 9:03 PM Age: 50 years old Clinical indication: Dyspnea; Additional info: Syncope TECHNIQUE: Imaging protocol: XR of the chest Views: 1 view. COMPARISON: No relevant prior studies available. FINDINGS: Lungs: Unremarkable. No consolidation. Pleural spaces: Unremarkable. No pleural effusion. No pneumothorax. Heart/Mediastinum: Unremarkable. No cardiomegaly. Bones/joints: Reverse shoulder replacement on the right. XR/XR chest 1V portable [id number] IMPRESSION: No evidence for acute cardiopulmonary disease. Dictated By: Eleni Ivey MD Signed By: Eleni Ivey MD Signed Date/Time: 10/18/202111 DD/ 10 Discharge Plan Discharge Patient Disposition: Home Clinical Impression: Hypertension Qualifiers: Hypertension type: essential hypertension Qualified Code(s): I10 - Essential (primary) hypertension Syncope Qualifiers: Syncope type: unspecified Qualified Code(s): R55 - Syncope and collapse UTI (urinary tract infection) Qualifiers: Urinary tract infection type: acute cystitis Hematuria presence: with hematuria Qualified Code(s): N30.01 - Acute cystitis with hematuria Condition: Stable Prescriptions: New Bactrim DS 800-160 mg tablet 1 tab PO BID 7 Days Qty: 14 RF: 0 lisinopril 10 mg tablet 10 mg PO DAILY Qty: 30 RF: 0 No Action tamsulosin 0.4 mg capsule 0.4 mg PO DAILY Qty: 20 RF: 0 Zofran 4 mg tablet 4 mg PO Q6H PRN (Reason: nausea and vomiting) Qty: 20 RF: 0 ropinirole 1 mg tablet 1 mg PO BEDTIME RF: 0 citalopram 40 mg tablet 40 mg PO DAILY RF: 0 ibuprofen 800 mg tablet 800 mg PO TID PRN (Reason: pain) RF: 0 sumatriptan succinate 50 mg tablet 50 mg PO PRN PRN (Reason: Migraine Headache) RF: 0 hydrocodone-acetaminophen 10-325 mg tablet 1 tab PO QID PRN (Reason: Pain) RF: 0 alprazolam 0.5 mg tablet 0.5 mg PO BID PRN (Reason: anxiety) RF: 0 furosemide 20 mg tablet 20 mg PO DAILY RF: 0 zolpidem 10 mg tablet 10 mg PO BEDTIME RF: 0 oxybutynin chloride 5 mg tablet 5 mg PO BID RF: 0 topiramate 100 mg tablet 100 mg PO BID PRN (Reason: Headache) RF: 0 Lyrica 75 mg capsule 75 mg PO BID RF: 0 Discharge Orders: Discharge ED (Routine); Ordered 10/18/20 Ordered By: Lucretia Tamez Referrals: Derrick Whitaker [Primary Care Provider] - Patient Instructions: Urinary Tract Infection in Women (ED), Syncope (ED) Activity Restrictions/Additional Instructions: Please return to the emergency department for repeat passing out episodes, chest pain, shortness of breath, difficulty breathing, fevers, flank pain, severe headache, or any other concerns you may have. Case management should contact you shortly to set you up with a new primary care provider. Coding Level of Care Code ED Binding End Stitcher for Jose R Vasquez
--- NOTE | 2020-10-18 20:39 | ECG_ITS ---
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
[2020-10-18 20:47] LABS: Basophils % 0.5 %; Eosinophils # 0.1 10^3/uL (0.0-0.8); Eosinophils % 0.8 %; Hematocrit 40.7 % (37.0-47.0); Hemoglobin 12.7 g/dL (11.5-15.3); Lymphocytes # 1.9 10^3/uL (0.8-4.8); Mean Corpuscular HGB Conc 31.2 g/dL (30.0-36.0); Mean Corpuscular Hemoglobin 27.4 pg (28.0-34.0); Mean Corpuscular Volume 87.7 fL (81-99); Mean Platelet Volume 10.2 fL (7.4-10.4); Monocytes # 0.4 10^3/uL (0.2-0.9); Monocytes % 5.5 %; Neutrophils # 5.02 10^3/uL (1.8-7.7); Neutrophils % 67.9 %; Nucleated Red Blood Cells % 0 %; Platelet Count 279 10^3/cmm (130-400); Red Blood Count 4.64 10^6/uL (4.1-5.3); Red Cell Distribution Width 15.1 % (12.1-15.1); White Blood Count 7.4 10^3/uL (4.0-10.0)
[2020-10-18 20:59] LABS: Alanine Aminotransferase 25 U/L (0-33); Albumin Level 4.8 g/dL (3.5-5.2); Alkaline Phosphatase 115 IU/L (35-105); Anion Gap 18.7 (5-19); Aspartate Amino Transferase 21 U/L (0-32); Blood Urea Nitrogen 12 mg/dL (6-20); Carbon Dioxide 24 mmol/L (22-29); Chloride 101 mmol/L (98-107); Globulin 2.9 g/dL (1.3-4.6); Glomerular Filtration Rate 75.3 mL/min (90-130); Glucose 116 mg/dL (65-115); Osmolality Calculated 291 mOsm/kg (285-295); Potassium 3.7 mmol/L (3.5-5.1); Sodium 140 mmol/L (136-145); Total Bilirubin 0.5 mg/dL (0.15-1.2); Total Protein 7.7 g/dL (6.6-8.7)
[2020-10-18 21:02] LABS: Troponin(5th) Baseline 9 ng/L (0-10)
[2020-10-18 21:39] LABS: Urine Appearance SL Hazy (CLEAR); Urine Color Yellow (Yellow); pH Urine 5 (5-7)
[2020-10-18 21:40] LABS: Add Urine Microscopic? YES; Bilirubin Urine 1+ (Negative); Blood Urine 2+ (Negative); Glucose Urine UA Norm (Normal); Ketones Urine 1+ (Negative); Leukocyte Esterase Urine 1+ (Negative); Nitrate Urine Positive (Negative); Protein Urine 1+ (Negative); Urobilinogen Urine 1 mg/dL (Negative)
[2020-10-18 21:41] LABS: Add Urine Culture? Yes; Bacteria Urine 3+ /hpf; RBC Urine 15-25 /hpf (0-2); Squamous Epithelial Cell Urine 0-4 /hpf (0-5); WBC Urine 25-40 /hpf (0-5)
[2020-10-18 21:45] LABS: Amphetamines Screen Urine Positive (Negative); Barbiturates Screen Urine Negative (Negative); Benzodiazepines Screen Urine Positive (Negative); Cocaine Screen Urine Negative (Negative); Opiate Screen Urine Negative (Negative); PCP Screen Urine Negative (Negative); THC Screen Urine Negative (Negative)
--- NOTE | 2020-10-20 15:51 | DCPLANNER ---
residential property manager had message to speak with patient about getting established with a primary care physician. residential property manager called phone number [phone] - unable able to speak with patient at this time a voicemail was left for patient to return case management rn phone call.
== END 2020-10-18 22:13 | disposition home or self-care (01) ==
PROVIDERS: Emergency Provider Physician Assistant; PCP Family Medicine
DX: R55 Syncope and collapse (principal); I10 Essential (primary) hypertension; N30.01 Acute cystitis with hematuria; F17.210 Nicotine dependence, cigarettes, uncomplicated
CPT/HCPCS: 70450; 71045; 80053; 80306; 81001; 84484; 85025; 87077; 87086; 87186; 93005; 99284

== ENCOUNTER → 2021-08-26 08:47 | Outpatient (BNVA) | payer MEDICARE, MEDICAID, SELFPAY | PROVIDERS: PCP Family Medicine; Visit Provider Orthopaedic Surgery | DX: M19.042 Primary osteoarthritis, left hand (principal); Z46.89 Encounter for fitting and adjustment of other specified devices; G56.02 Carpal tunnel syndrome, left upper limb; M65.312 Trigger thumb, left thumb | CPT/HCPCS: 73130; 97760; L3809 ==

== ENCOUNTER 2021-08-26 14:10 | Outpatient (CLI) | payer MEDICARE, MEDICAID, SELFPAY | END 2021-08-26 14:11 | disposition home or self-care (01) | LOC: SPT 14:11 | PROVIDERS: PCP Family Medicine; Visit Provider Orthopaedic Surgery | DX: Z46.89 Encounter for fitting and adjustment of other specified devices (principal); G56.02 Carpal tunnel syndrome, left upper limb; M65.312 Trigger thumb, left thumb | CPT/HCPCS: 97760; L3809 ==

== ENCOUNTER 2022-06-25 10:17 | Observation (INO) | payer MEDICARE, MEDICAID, SELFPAY ==
[2022-06-25] VITALS (59 sets, daily range): BP systolic 112–163; BP diastolic 77–96; PULSE 84–147; RESP 13–35; TEMP 36.6; O2SAT 92–98; BMI 49.9
--- NOTE | 2022-06-25 10:53 | XRR_ITS ---
PROCEDURE INFORMATION: Exam: XR Chest Exam date and time: 06/25/2022 12:04 PM Age: 52 years old Clinical indication: Shortness of breath; Patient HX: SOB since Tuesday. Was sick last week TECHNIQUE: Imaging protocol: Radiologic exam of the chest. Views: 1 view. COMPARISON: CR XR chest 1V portable [id number] 10/18/2020 8:52 PM FINDINGS: Lungs: Unremarkable. No consolidation. Pleural spaces: Unremarkable. No pleural effusion. No pneumothorax. Heart/Mediastinum: Unremarkable. No cardiomegaly. Bones/joints: Metallic arthroplasty is seen in the right shoulder XR/XR chest 1V portable [id number] IMPRESSION: No acute findings. Metallic arthroplasty right shoulder
--- NOTE | 2022-06-25 10:54 | ECG_ITS ---
[facility] Test Date: 2022-06-25 Pat Name: Mervin Reyes Department: Room: Gender: Female Processing Associate: NBA: 1970 Requested By: Odette Quinones Order Number: [id number] Kyrie MD: Denice Moreno M.D. Measurements Intervals [place] Rate: 97 P: 0 TN: 0 QRS: 27 QRSD: 109 T: 39 QT: 358 QTc: 456 Interpretive Statements ATRIAL FIBRILLATION Poor R wave progression MODERATE INTRAVENTRICULAR CONDUCTION DELAY [105+ ms QRS DURATION, 80+ ms Q/S IN V1/V2, NO Q AND 60+ ms R IN I/aVL/V5/V6] Compared to ECG 10/18/2020 20:33:00 Sinus rhythm no longer present Electronically Signed On 06-26-2022 14:10:47 WEBMASTER by Denice Moreno M.D. [email or web address]
[2022-06-25 11:02] LABS: Basophils % 0.3 %; Eosinophils # 0.1 10^3/uL (0.0-0.8); Eosinophils % 1.7 %; Hemoglobin 11.2 g/dL (11.5-15.3); Lymphocytes # 1.2 10^3/uL (0.8-4.8); Lymphocytes % 20.4 %; Mean Corpuscular HGB Conc 31.1 g/dL (30.0-36.0); Mean Corpuscular Hemoglobin 27.4 pg (28.0-34.0); Mean Platelet Volume 10.6 fL (7.4-10.4); Monocytes # 0.3 10^3/uL (0.2-0.9); Monocytes % 5.1 %; Neutrophils # 4.21 10^3/uL (1.8-7.7); Neutrophils % 72.2 %; Nucleated Red Blood Cells % 0 %; Platelet Count 287 10^3/cmm (130-400); Red Blood Count 4.09 10^6/uL (4.1-5.3); Red Cell Distribution Width 13.8 % (12.1-15.1); White Blood Count 5.8 10^3/uL (4.0-10.0)
--- NOTE | 2022-06-25 11:04 | ED_ITS ---
HPI - SOB/Dyspnea General: Chief Complaint: Shortness of Breath/Dyspnea Stated Complaint: SOB Time Seen by Provider: 06/25/22 10:57 Source: patient Mode of arrival: ambulatory Limitations: no limitations History of Present Illness: HPI Narrative: 52-year-old female presents emergency room via EMS from local primary care clinic. She did well for the last 2 days presented to the primary care doctor was found to be A. fib with RVR which is new for her she denies any chest pain now, she did have some intitially. No history of coronary artery disease. She does smoke she is not diabetic she is morbidly obese. MD elicited complaint: shortness of breath and cough Onset (ago): day(s) Timing: constant Severity: mild Exacerbating factors: nothing Relieving factors: nothing Associated symptoms: Reports chest pain; Deny abdominal pain, chest congestion, cough, diaphoresis, dizziness, extremity pain, fever(s), hemoptysis, lightheadedness, myalgias, nausea, orthopnea, palpitations, paresthesias, polydipsia, polyuria, rash, sense of impending doom, syncope or vomiting Review of Systems Const: Denies: fever(s), chills, fatigue, malaise or diaphoresis ENMT: Denies: throat pain, ear or mastoid pain, nasal discharge or nasal congestion Card: Reports: chest pain; Denies: palpitations, lightheadedness, syncope or orthopnea Resp: Denies: hemoptysis or chest congestion GI: Denies: abdominal pain, nausea or vomiting : Denies: flank pain, difficulty voiding, dysuria, urinary frequency or urinary urgency Musc: Denies: neck pain, back pain or extremity pain Skin/Breast: Denies: rash or pruritus Neuro: Denies: dizziness Endo: Denies: polyuria or polydipsia PFSH ED PFSH: Medical History Acute diastolic heart failure Atrial fibrillation with RVR Benign essential HTN Dyslipidemia Fever History of chronic back pain History of kidney stones History of sleep apnea History of uterine fibroid Insomnia Left carpal tunnel syndrome Migraine without aura Mixed anxiety and depressive disorder Obesity Type 2 diabetes mellitus, without long-term current use of insulin Surgical History H/O hysterectomy for benign disease History of bariatric surgery gastric sleeve - 2017 History of carpal tunnel release On left History of carpal tunnel surgery History of cholecystectomy History of shoulder surgery Reverse shoulder on right History of total right hip arthroplasty Family History Other CAD (coronary artery disease) Cancer Social History Smoking and tobacco status: current every day smoker Alcohol intake: never Physical Exam Const: GENERAL APPEARANCE: cooperative and comfortable ORIENTATION/CONSCIOUSNESS: Yes awake, Yes oriented to person, Yes oriented to pl [place] and Yes oriented to time HENMT: COMMON NORMALS: normocephalic and atraumatic HEAD & SCALP: normocephalic and atraumatic Resp: COMMON NORMALS: normal respiratory effort, No retractions, No use of accessory muscles and clear to auscultation bilaterally AUSCULTATION: clear to auscultation bilaterally Cardio: COMMON NORMALS: No murmurs present (Cardio) RATE: tachycardic RHYTHM: abnormal rhythm irregularly irregular GI: COMMON NORMALS: Soft to palpation and No hepatosplenomegaly present AUSCULTATION: Yes normoactive bowel sounds PALPATION: Yes Soft to palpation, No Tenderness to palpation present (GI), No Guarding due to palpation present (GI) and Yes No hepatosplenomegaly present Extremity: COMMON NORMALS: normal to inspection, capillary refill normal, no clubbing, cyanosis or edema, no calf tenderness and no pedal edema Neuro: SENSORIUM/ORIENTATION: Yes oriented to person, Yes oriented to place and Yes oriented to time Skin: COMMON NORMALS: no rashes or lesions noted GENERAL SKIN EXAM: no rashes or lesions noted Course Vital Signs: Vital signs: Vital Signs Temperature 97.5 F L 06/26/22 08:00 Pulse Rate 80 06/26/22 08:00 Respiratory Rate 19 H 06/26/22 08:00 Blood Pressure 136/83 06/26/22 08:00 Pulse Oximetry 95 06/26/22 08:00 Oxygen Delivery Me thod 06/26/22 08:00 MDM - SOB/Dyspnea Medical Decision Making A. fib with RVR mild congestive heart failure will admit discussed with hospitalist orders written Medical Records I reviewed the patient's medical records. Lab Data I reviewed the patient's lab results. 06/26/22 05:28 06/26/22 05:28 Labs/Radiology: Radiology Impressions Chest X-Ray 06/25/22 10:53 IMPRESSION: No acute findings. Metallic arthroplasty right shoulder Laboratory Results WBC 5.8 10^3/uL (4.0-10.0) 06/25/22 10:05 RBC 4.09 10^6/uL (4.1-5.3) L 06/25/22 10:05 Hgb 11.2 g/dL (11.5-15.3) L 06/25/22 10:05 Hct 36.0 % (37.0-47.0) L 06/25/22 10:05 MCV 88.0 fl (81-99) 06/25/22 10:05 MCH 27.4 pg (28.0-34.0) L 06/25/22 10:05 MCHC 31.1 g/dL (30.0-36.0) 06/25/22 10:05 RDW 13.8 % (12.1-15.1) 06/25/22 10:05 Plt Count 287 10^3/cmm (130-400) 06/25/22 10:05 MPV 10.6 fL (7.4-10.4) H 06/25/22 10:05 Neut % (Auto) 72.2 % 06/25/22 10:05 Lymph % (Auto) 20.4 % 06/25/22 10:05 [place] % (Auto) 5.1 % 06/25/22 10:05 Eos % (Auto) 1.7 % 06/25/22 10:05 Baso % (Auto) 0.3 % 06/25/22 10:05 Neut # (Auto) 4.21 10^3/uL (1.8-7.7) 06/25/22 10:05 Lymph # (Auto) 1.2 10^3/uL (0.8-4.8) 06/25/22 10:05 [place] # (Auto) 0.3 10^3/uL (0.2-0.9) 06/25/22 10:05 Eos # (Auto) 0.1 10^3/uL (0.0-0.8) 06/25/22 10:05 Baso # (Auto) 0.0 10^3/uL (0.0-0.1) 06/25/22 10:05 Nucleated RBC % (auto) 0 % 06/25/22 10:05 Nucleated RBCs # 0.0 /100WBC 06/25/22 10:05 PT 12.80 SECONDS (12.1-14.9) 06/25/22 10:05 INR 0.94 (0.8-1.2) 06/25/22 10:05 APTT 27.4 SECONDS (23.9-36.7) 06/25/22 10:05 Sodium 142 mmol/L (136-145) 06/25/22 10:05 Potassium 4.0 mmol/L (3.5-5.1) 06/25/22 10:05 Chloride 105 mmol/L (98-107) 06/25/22 10:05 Carbon Dioxide 26 mmol/L (22-29) 06/25/22 10:05 Anion Gap 15.0 (5-19) 06/25/22 10:05 BUN 8 mg/dL (6-20) 06/25/22 10:05 Creatinine 0.6 mg/dL (0.5-0.9) 06/25/22 10:05 GFR Calculation 104.2 mL/min (90-130) 06/25/22 10:05 Glucose 104 mg/dL (65-115) 06/25/22 10:05 Calculated Osmolality 293 mOsm/kg (285-295) 06/25/22 10:05 Calcium 9.2 mg/dL (8.5-10.5) 06/25/22 10:05 Magnesium 2.2 mg/dL (1.7-2.3) 06/25/22 12:08 Total Bilirubin 0.3 mg/dL (0.15-1.2) 06/25/22 10:05 AST 11 U/L (0-32) 06/25/22 10:05 ALT 10 U/L (0-33) 06/25/22 10:05 Alkaline Phosphatase 99 U/L (35-105) 06/25/22 10:05 Troponin T Baseline 8 ng/L (0-10) 06/25/22 10:05 Troponin T 120 Minute 6.76 ng/L (0-10) 06/25/22 12:12 Delta Troponin T -1.24 ABS# (0-10) L 06/25/22 12:12 NT-Pro-B Natriuret Pep 1531 pg/mL (0-125) H 06/25/22 10:05 Total Protein 6.9 g/dL (6.6-8.7) 06/25/22 10:05 Albumin 3.9 g/dL (3.5-5.2) 06/25/22 10:05 Globulin 3.0 g/dL (1.3-4.6) 06/25/22 10:05 TSH 0.05 uIU/mL (0.27-4.20) L 06/25/22 12:08 Free T4 1.61 ng/dL (0.82-1.77) 06/25/22 10:05 Free T3 3.4 PG/ML (2.0-4.4) 06/25/22 10:05 Urine Color Yellow (Yellow) 06/25/22 10:23 Urine Appearance Clear (CLEAR) 06/25/22 10:23 Urine pH 7 (5-7) 06/25/22 10:23 Ur Specific [place] 1.005 (1.005-1.030) 06/25/22 10:23 Urine Protein Neg (Negative) 06/25/22 10:23 Urine Glucose (UA) Norm (Normal) 06/25/22 10:23 Urine Ketones Negative (Negative) 06/25/22 10:23 Urine Blood Neg (Negative) 06/25/22 10:23 Urine Nitrate Negative (Negative) 06/25/22 10:23 Urine Bilirubin Neg (Negative) 06/25/22 10:23 Urine Urobilinogen Neg mg/dL (Negative) 06/25/22 10:23 Ur Leukocyte Esterase Negative (Negative) 06/25/22 10:23 Urine RBC None /hpf (0-2) 06/25/22 10:23 Urine WBC None /hpf (0-5) 06/25/22 10:23 Ur Squamous Epith Cells 0-4 /hpf (0-5) H 06/25/22 10:23 Amorphous Sediment Not Reportable 06/25/22 10:23 Urine Bacteria None /hpf (NONE) 06/25/22 10:23 Coronavirus 229E (PCR) Not detected (NOT DETECT) 06/25/22 14:20 SARS-CoV-2 (PCR) Not detected (NOT DETECT) 06/25/22 14:20 Discharge Plan Discharge Patient Disposition: Admitted As Inpatient Admit Provider: Sharath Smyth Clinical Impression: Atrial fibrillation with rapid ventricular response, Congestive heart failure Condition: Stable Discharge Diet: Cardiac Discharge Activity: Increase activity as tolerated Coding Level of Care Code ED Industrial X Ray Operator for Jose R Vasquez
[2022-06-25 11:13] LABS: INR 0.94 (0.8-1.2); Partial Thromboplastin Time 27.4 SECONDS (23.9-36.7)
--- NOTE | 2022-06-25 11:13 | PC.PHAR ---
pt states she takes care of her own medications-pt states she hasnt had her medications in 2 weeks-
[2022-06-25 11:23] LABS: Troponin(5th) Baseline 8 ng/L (0-10)
[2022-06-25] MEDS: metoprolol tartrate 50 mg Tablet PO ×2 (11:27→17:49)
[2022-06-25] MEDS: metoprolol tartrate 1 mg/1 mL SDV 5 mL 2.5 MG IVP (11:27)
[2022-06-25 11:29] LABS: Alanine Aminotransferase 10 U/L (0-33); Albumin Level 3.9 g/dL (3.5-5.2); Alkaline Phosphatase 99 U/L (35-105); Aspartate Amino Transferase 11 U/L (0-32); Blood Urea Nitrogen 8 mg/dL (6-20); Calcium 9.2 mg/dL (8.5-10.5); Carbon Dioxide 26 mmol/L (22-29); Chloride 105 mmol/L (98-107); Creatinine Clr Calc Pharmacy 149.9755; Glomerular Filtration Rate 104.2 mL/min (90-130); Glucose 104 mg/dL (65-115); NT Pro B Type Natriuretic Pept 1531 pg/mL (0-125); Osmolality Calculated 293 mOsm/kg (285-295); Sodium 142 mmol/L (136-145); Total Bilirubin 0.3 mg/dL (0.15-1.2); Total Protein 6.9 g/dL (6.6-8.7)
[2022-06-25 12:40] LABS: Magnesium 2.2 mg/dL (1.7-2.3); Thyroid Stimulating Hormone 0.05 uIU/mL (0.27-4.20)
[2022-06-25 12:46] LABS: Troponin 5 2HR 6.76 ng/L (0-10)
--- NOTE | 2022-06-25 12:55 | PM.HP ---
Providers/Chief Complaint Admitting Physician: Sharath Smyth MD Primary Care Provider: Florence Pisano DO Chief Complaint: SOB History of Present Illness Mervin Reyes is a 52 year old female presenting from home with history of palpitations last 2 to 3 days. She states earlier than that, earlier this week 5 to 6 days ago she was sick with some congestion and fever. She also ached all over. She denies any nausea, vomiting, diarrhea, ill contacts with COVID. Has been short of breath, and swelling. No chest discomfort. Reports past history of methamphetamine use but none currently. Denies any alcohol use. Reports no past history of atrial fibrillation. No blood in stool or black or tarry stools. No history of bleeding disorder. Review of Systems General: Reports: 10 or more systems reviewed and unremarkable except in HPI and below Const: Reports: fever(s), body aches and fatigue Eyes: Denies: change in vision ENMT: Denies: throat pain Card: Reports: palpitations and swelling of feet/ankles; Denies: chest pain Resp: Reports: dyspnea GI: Denies: abdominal pain, nausea, vomiting, hematochezia or melena : Denies: flank pain Musc: Denies: neck pain Skin/Breast: Denies: rash Neuro: Denies: headache(s) Psych: Reports: anxiety and depression Endo: Denies: polyuria Maximus/Lymph: Denies: easy bruising All/Imm: Denies: urticaria Medications/Allergies Home Medications Medication Instructions Recorded Confirmed Last Taken Type alprazolam 0.5 mg tablet 0.5 mg PO BID PRN anxiety 30 days 05/14/22 06/25/22 2 Weeks Ago Rx #60 tabs ~06/11/22 citalopram 40 mg tablet 40 mg PO DAILY #30 tabs 05/14/22 06/25/22 2 Weeks Ago Rx ~06/11/22 ibuprofen 800 mg tablet 800 mg PO DAILY PRN pain #30 tabs 05/14/22 06/25/22 06/24/22 Rx pramipexole 0.25 mg tablet 0.25 mg PO BID #60 tabs 05/14/22 06/25/22 2 Weeks Ago Rx (Mirapex) ~06/11/22 sumatriptan succinate 50 mg tablet 50 mg PO ONCE PRN Migraine 05/14/22 06/25/22 Unknown Rx Headache #9 tabs topiramate 25 mg tablet 25 mg PO BID PRN Headache #60 tabs 05/14/22 06/25/22 Unknown Rx zolpidem 10 mg tablet 10 mg PO BEDTIME PRN insomnia #30 05/14/22 06/25/22 Unknown Rx tabs albuterol sulfate 90 mcg/actuation 2 puff inhalation Q4H PRN 06/25/22 06/25/22 Unknown History aerosol inhaler Shortness Of Breath famotidine 40 mg tablet 40 mg PO BID 06/25/22 06/25/22 1 Week Ago History ~06/18/22 rx filled 05/12 45d/ lisinopril 20 mg tablet 20 mg PO QAM 06/25/22 06/25/22 2 Days Ago History ~06/23/22 lovastatin 20 mg tablet 20 mg PO BEDTIME 06/25/22 06/25/22 2 Weeks Ago History ~06/11/22 Allergies Allergy/AdvReac Type Severity Reaction Status Date / Time gabapentin Allergy ADR-Halluci Verified 06/25/22 11:00 [facility] PFS Acute PFSH: Medical History (Updated 06/25/22 @ 13:16 by Sharath Smyth MD) Benign essential HTN Dyslipidemia History of chronic back pain History of kidney stones History of sleep apnea History of uterine fibroid Insomnia Left carpal tunnel syndrome Migraine without aura Mixed anxiety and depressive disorder Obesity Type 2 diabetes mellitus, without long-term current use of insulin Surgical History (Updated 06/25/22 @ 13:15 by Sharath Smyth MD) H/O hysterectomy for benign disease History of bariatric surgery gastric sleeve - 2016 History of carpal tunnel release On left History of carpal tunnel surgery History of cholecystectomy History of shoulder surgery Reverse shoulder on right History of total right hip arthroplasty Family History (Updated 06/25/22 @ 13:16 by Sharath Smyth MD) Other CAD (coronary artery disease) Cancer Social History (Updated 06/25/22 @ 13:16 by Sharath Smyth MD) Smoking and tobacco status: current every day smoker Alcohol intake: never Substance/Drug Use: former Vitals/I&O/Wt Last Vital Signs Pulse 109 H 06/25/22 11:25 Resp 17 06/25/22 11:25 BP 112/93 06/25/22 11:25 Pulse Ox 96 06/25/22 11:25 O2 Del Method 06/25/22 10:32 Weight last 48 hrs Weight 136.078 kg Physical Exam Narrative: General exam is a white female, in no distress currently. HEENT: Atraumatic and normocephalic. Pupils equally round. Oropharynx clear. Neck is supple no lymphadenopathy or thyromegaly Cardiovascular irregular, irregular without murmur. No S3 or S4 Lungs clear no wheezing or crackles Abdomen is soft nontender with positive bowel sounds. No obvious organomegaly exam is deferred Extremities show trace edema bilaterally. No cyanosis or clubbing. Skin no rash Neuro no obvious focal deficits. Data : 06/25/22 10:05 06/25/22 10:05 Other Labs: Troponin is 8 with repeat of 6.76 BNP elevated at 1531 LFTs normal Chest x-ray no infiltrate EKG demonstrates atrial fibrillation, rate of 97, normal axis, intraventricular conduction delay A&P Assessment and plan (1) Atrial fibrillation with RVR: Patient presented with atrial fibrillation with rapid ventricular rate, new onset. Will obtain magnesium level, TSH She has been given a significant amount of beta-albina by the emergency department orally. This is reduced her rate significantly. Continue metoprolol 50 mg twice daily. If insufficient for rate control, will add short acting Cardizem. If uncontrolled consider Cardizem drip. Anticoagulation with Lovenox 1 mg/kg every 12 hours Check echocardiogram Serial troponins Telemetry [id number] score is 3. Needs anticoagulation on discharge. Patient has agreed to this. Risks and benefits were discussed. (2) Acute diastolic heart failure: Likely has acute diastolic heart failure from atrial fibrillation with rapid ventricular rate. This appears mild Lasix 20 mg IV x1 Await echocardiogram Cardiac diet She has some lower extremity edema as well. Check venous duplex (3) Fever: Patient reports history of fever 4 to 5 days ago, with congestion Check COVID PCR. This should also screen for influenza. Check urinalysis She does not appear toxic, nor septic. (4) Benign essential HTN: Metoprolol 50 mg twice daily Hold TAY inhibitor as metoprolol new start. Plan Other medical problems as outlined in past medical history Full code Lovenox will suffice for DVT prophylaxis Attestations Medical Necessity Statement*: Will need less than 2 midnight stay for evaluation and treatment of atrial fibrillation with rapid ventricular rate, new onset. Coding Level of Care Code Acute Warehouse Puller for Chg Fwd Diagnoses Atrial fibrillation with RVR I48.91 Acute diastolic heart failure I50.31 Fever R50.9 Benign essential HTN I10
--- NOTE | 2022-06-25 12:59 | USCV_ITS ---
Mervin Reyes Age: 52 Gender: F : 1970 Exam Date: 06/25/2022 13:43 Ordering Phys: Sharath Smyth MD Technologist: ALDO [place] [facility] [place]: SHORTNESS OF BREATH BP: 112 / 93 HR: 104 Rhythm: Atrial fibrillation Technical Quality: Technically difficult study MEASUREMENTS (Male / Female) Normal Values 2D ECHO LVOT Diameter 2.0 cm LV Ejection Fraction MOD 2C 47.7 % LV Ejection Fraction 2C AL 47.8 % LA Diameter 3.5 cm LA Width 3.9 cm LA Height 6.2 cm RA Width 2.9 cm RA Height 4.4 cm Aorta at Sinotubular Diameter 2.9 cm M-MODE Aortic Annulus Diameter 3.4 cm LA Ao Ratio MM 1.0 MV E Point Septal Separation 0.3 cm DOPPLER AV Peak Velocity 141.0 cm/s LVOT Peak Velocity 103.0 cm/s AV Area Cont Eq vti 2.3 cm squared AV Area Cont Eq pk 2.3 cm squared MV Peak Velocity 108.0 cm/s MV Area PHT 4.3 cm squared MV E' Velocity 51.0 cm/s Mitral E to MV E' Ratio 7.0 Mitral E to LV E' Lateral Ratio 6.3 Mitral E to LV E' Septal Ratio 7.9 TR Peak Velocity 210.0 cm/s TR Peak Gradient 17.6 mmHg TV Peak E Velocity 44.0 cm/s Right Atrial Pressure 8.0 mmHg Pulmonary Artery Systolic Pressu 25.6 mmHg PV Peak Velocity 74.0 cm/s RV Acceleration Time 0.1 s RV Ejection Time 0.2 s RV AcT/ET 0.5 FINDINGS Left Ventricle Possibly normal LV size. Ejection fraction around 48%. Even with the echo contrast, the study is of suboptimal quality. (Echo contrast - Optison was used to delineate the endocardium and to estimate the LV ejection fraction) Right Ventricle Could not be visualized Right Atrium Right atrium not well visualized. Left Atrium Possibly of normal size Mitral Valve Mild mitral valve regurgitation. Aortic Valve No gross abnormalities Tricuspid Valve Tricuspid valve not well visualized. Pulmonic Valve Pulmonic valve not well visualized. Pericardium No pericardial effusion. Aorta Normal aortic annulus size. IVC Inferior vena cava not visualized. CONCLUSIONS Possibly normal LV size. Ejection fraction around 48%. Even with the echo contrast, the study is of suboptimal quality. (Echo contrast - Optison was used to delineate the endocardium and to estimate the LV ejection fraction). Mild mitral valve regurgitation. No pericardial effusion. Technically difficult study because of the poor ultrasonic window. Dr Denice Moreno MD [facility] (Electronically Signed) Final Date: 25 June 2022 21:21 S
--- NOTE | 2022-06-25 13:03 | USCV_ITS ---
Mervin Reyes Age: 52 Gender: F : 1970 Exam Date: 06/25/2022 13:28 Ordering Phys: Sharath Smyth MD Technologist: ALDO [place] [facility] [place]: [place]WELL[place] HISTORY: Lower extremity swelling. PROCEDURES: Venous duplex imaging was performed in bilateral lower extremities. The following venous structures were evaluated: common femoral vein, profunda vein, proximal portion of the greater saphenous vein, superficial femoral vein, and the popliteal vein. In addition, the posterior tibial and peroneal trunk were evaluated. Serial compression, augmentation maneuvers, and spectral Doppler flow evaluation were performed. FINDINGS: Examination was technically limited due to body habitus. Normal 2-D Doppler and augmentation and compressibility throughout the lower extremity venous structures. Additional imaging through the proximal calf veins also reveals no thrombus. Limited evaluation of the greater saphenous vein is patent with no thrombus. CONCLUSIONS No DVT bilateral lower extremities. Dr. Beba Silva DO (Electronically Signed) Final Date: 25 June 2022 14:20 S
[2022-06-25 13:09] LABS: Troponin 5 2HR Delta -1.24 ABS# (0-10)
[2022-06-25 13:44] LABS: Free T4 Free Thyroxine 1.61 ng/dL (0.82-1.77); T3 Free 3.4 PG/ML (2.0-4.4)
[2022-06-25 14:04] LABS: Bilirubin Urine Neg (Negative); Blood Urine Neg (Negative); Glucose Urine UA Norm (Normal); Ketones Urine Negative (Negative); Leukocyte Esterase Urine Negative (Negative); Nitrate Urine Negative (Negative); Protein Urine Neg (Negative); Specific Gravity, Urine 1.005 (1.005-1.030); Urine Appearance Clear (CLEAR); Urine Color Yellow (Yellow); Urobilinogen Urine Neg (Negative); pH Urine 7 (5-7)
[2022-06-25 14:06] LABS: Add Urine Culture? No; Squamous Epithelial Cell Urine 0-4 /hpf (0-5)
[2022-06-25] MEDS: perflutren protein-a microsphr 0.22 mg/mL SDV 3 mL IV (14:15)
[2022-06-25] MEDS: FUROsemide 10 mg/mL SDV 2mL 20 MG IVP (14:17)
[2022-06-25 16:15] LABS: Adenovirus Not Detected (NOT DETECT); Chlamydia Pneumoniae Not Detected (NOT DETECT); Coronavirus 229E,HKU1,NL63,OC4 Not Detected (NOT DETECT); Human Metapneumovirus Not Detected (NOT DETECT); Human Rhinovirus/Enterovirus Not Detected (NOT DETECT); Influenza A Not Detected (NOT DETECT); Influenza A H1 Not Detected (NOT DETECT); Influenza A H1-2009 Not Detected (NOT DETECT); Influenza A H3 Not Detected (NOT DETECT); Influenza B Not Detected (NOT DETECT); Mycoplasma Pneumoniae Not Detected (NOT DETECT); Parainfluenza Virus Type 1 Not Detected (NOT DETECT); Parainfluenza Virus Type 2 Not Detected (NOT DETECT); Parainfluenza Virus Type 3 Not Detected (NOT DETECT); Parainfluenza Virus Type 4 Not Detected (NOT DETECT); Respiratory Syncytial Virus A Not Detected (NOT DETECT); Respiratory Syncytial Virus B Not Detected (NOT DETECT); SARS-COV-2 Not Detected (NOT DETECT)
--- NOTE | 2022-06-25 16:54 | ECG_ITS ---
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 Measurements Intervals [place] Rate: 97 P: 0 ID: 0 QRS: 41 QRSD: 114 T: 32 QT: 360 QTc: 457 Interpretive Statements ATRIAL FIBRILLATION MODERATE INTRAVENTRICULAR CONDUCTION DELAY [110+ ms QRS DURATION] ABNORMAL RHYTHM ECG Compared to ECG 06/25/2022 12:18:47 No significant changes Electronically Signed On 06-26-2022 15:29:19 NIGHT CLUB MANAGER by Denice Moreno M.D. [email or web address]
[2022-06-25 17:14] LABS: Troponin 5 6HR 8.72 ng/L (0-10)
[2022-06-25] MEDS: nicotine 21 mg Patch 1 PATCH TRANSDERMA (17:47)
[2022-06-25] MEDS: enoxaparin 120 mg/0.8 mL Syringe SUBCUT (17:47)
[2022-06-25] MEDS: famotidine 20 mg Tablet 40 MG PO (17:48)
[2022-06-25] MEDS: dilTIAZem 30 mg Tablet PO ×2 (17:49→21:35)
[2022-06-25] MEDS: pramipexole 0.25 mg Tablet PO (17:49)
[2022-06-25 18:12] LABS: Troponin 5 6HR Delta 0.72 ng/L (0-12)
[2022-06-25] MEDS: acetaminophen 325 mg Tablet 650 MG PO (21:34)
[2022-06-25] MEDS: atorvastatin 40 mg Tablet 20 MG PO (21:34)
[2022-06-26] VITALS: BP 153/91; PULSE 87; RESP 17; TEMP 36.6; O2SAT 94
[2022-06-26 04:00] VITALS: PULSE 88; RESP 16; TEMP 36.6; O2SAT 95
[2022-06-26] MEDS: dilTIAZem 30 mg Tablet PO ×2 (04:16→09:16)
[2022-06-26] MEDS: acetaminophen 325 mg Tablet 650 MG PO (04:20)
[2022-06-26] MEDS: enoxaparin 120 mg/0.8 mL Syringe SUBCUT (05:04)
[2022-06-26 06:41] LABS: Basophils % 0.5 %; Eosinophils # 0.1 10^3/uL (0.0-0.8); Eosinophils % 2.1 %; Hematocrit 33.9 % (37.0-47.0); Hemoglobin 10.4 g/dL (11.5-15.3); Lymphocytes # 1.9 10^3/uL (0.8-4.8); Lymphocytes % 31.2 %; Mean Corpuscular HGB Conc 30.7 g/dL (30.0-36.0); Mean Corpuscular Hemoglobin 26.6 pg (28.0-34.0); Mean Corpuscular Volume 86.7 fl (81-99); Mean Platelet Volume 10.6 fL (7.4-10.4); Monocytes # 0.4 10^3/uL (0.2-0.9); Monocytes % 6.3 %; Neutrophils # 3.61 10^3/uL (1.8-7.7); Neutrophils % 59.7 %; Nucleated Red Blood Cells % 0 %; Platelet Count 289 10^3/cmm (130-400); Red Blood Count 3.91 10^6/uL (4.1-5.3); Red Cell Distribution Width 13.8 % (12.1-15.1); White Blood Count 6.1 10^3/uL (4.0-10.0)
[2022-06-26 07:05] LABS: Anion Gap 12.8 (5-19); Blood Urea Nitrogen 10 mg/dL (6-20); Calcium 9.3 mg/dL (8.5-10.5); Carbon Dioxide 27 mmol/L (22-29); Chloride 102 mmol/L (98-107); Glomerular Filtration Rate 104.2 mL/min (90-130); Glucose 98 mg/dL (65-115); Osmolality Calculated 285 mOsm/kg (285-295); Potassium 3.8 mmol/L (3.5-5.1); Sodium 138 mmol/L (136-145)
--- NOTE | 2022-06-26 07:59 | PM.DCS ---
Discharge Providers Date of Admission: 06/25/22 16:22 Date of Discharge: June 26, 2022 Attending Provider at Admission: Sharath Smyth MD Attending Provider at Discharge: Frannie Wallace MD Primary Care Provider: Florence Pisano DO Diagnoses at Discharge Discharge Diagnosis (1) Atrial fibrillation with RVR: Status: Acute (2) Acute diastolic heart failure: Status: Acute (3) Fever: Status: Acute (4) Benign essential HTN: Status: Acute Reason for Visit Reason for Visit: SOB Hospital Course Hospital Course 82-year female who was admitted for management of new onset A. fib RVR. She responded very well to beta-albina. She was anticoagulated with Lovenox during hospitalization. Abnormal TSH however free T4 normal no signs of DVT, potassium and magnesium at goal. She has been discharged home on metoprolol, Cardizem and Eliquis. Echo revealed EF 48%. COVID-negative. High BNP related to PE, I will prescribe her low-dose Lasix along potassium supplement Physical Exam Narrative: Patient was awake and alert Nonfocal neuro exam Abdomen soft Morbidly obese Variable S1-S2 Currently on room air Nonfocal neuro exam Discharge Data Studies Completed and Pending Completed Studies During Hospitalization Category Date Time Status XR chest 1V portable [id number] Stat Exams 06/25/22 10:53 [place] [id number] Routine Ultrasound 06/25/22 13:03 Completed CV. echo wo/w contrast [id number] Routine Ultrasound 06/25/22 12:59 Completed Radiology Impressions Chest X-Ray 06/25/22 10:53 IMPRESSION: No acute findings. Metallic arthroplasty right shoulder Laboratory Results WBC 6.1 10^3/uL (4.0-10.0) 06/26/22 05:28 RBC 3.91 10^6/uL (4.1-5.3) L 06/26/22 05:28 Hgb 10.4 g/dL (11.5-15.3) L 06/26/22 05:28 Hct 33.9 % (37.0-47.0) L 06/26/22 05:28 MCV 86.7 fl (81-99) 06/26/22 05:28 MCH 26.6 pg (28.0-34.0) L 06/26/22 05:28 MCHC 30.7 g/dL (30.0-36.0) 06/26/22 05:28 RDW 13.8 % (12.1-15.1) 06/26/22 05:28 Plt Count 289 10^3/cmm (130-400) 06/26/22 05:28 MPV 10.6 fL (7.4-10.4) H 06/26/22 05:28 Neut % (Auto) 59.7 % 06/26/22 05:28 Lymph % (Auto) 31.2 % 06/26/22 05:28 [place] % (Auto) 6.3 % 06/26/22 05:28 Eos % (Auto) 2.1 % 06/26/22 05:28 Baso % (Auto) 0.5 % 06/26/22 05:28 Neut # (Auto) 3.61 10^3/uL (1.8-7.7) 06/26/22 05:28 Lymph # (Auto) 1.9 10^3/uL (0.8-4.8) 06/26/22 05:28 [place] # (Auto) 0.4 10^3/uL (0.2-0.9) 06/26/22 05:28 Eos # (Auto) 0.1 10^3/uL (0.0-0.8) 06/26/22 05:28 Baso # (Auto) 0.0 10^3/uL (0.0-0.1) 06/26/22 05:28 Nucleated RBC % (auto) 0 % 06/26/22 05:28 Nucleated RBCs # 0.0 /100WBC 06/26/22 05:28 PT 12.80 SECONDS (12.1-14.9) 06/25/22 10:05 INR 0.94 (0.8-1.2) 06/25/22 10:05 APTT 27.4 SECONDS (23.9-36.7) 06/25/22 10:05 Sodium 138 mmol/L (136-145) 06/26/22 05:28 Potassium 3.8 mmol/L (3.5-5.1) 06/26/22 05:28 Chloride 102 mmol/L (98-107) 06/26/22 05:28 Carbon Dioxide 27 mmol/L (22-29) 06/26/22 05:28 Anion Gap 12.8 (5-19) 06/26/22 05:28 BUN 10 mg/dL (6-20) 06/26/22 05:28 Creatinine 0.6 mg/dL (0.5-0.9) 06/26/22 05:28 GFR Calculation 104.2 mL/min (90-130) 06/26/22 05:28 Glucose 98 mg/dL (65-115) 06/26/22 05:28 Calculated Osmolality 285 mOsm/kg (285-295) 06/26/22 05:28 Calcium 9.3 mg/dL (8.5-10.5) 06/26/22 05:28 Magnesium 2.2 mg/dL (1.7-2.3) 06/25/22 12:08 Total Bilirubin 0.3 mg/dL (0.15-1.2) 06/25/22 10:05 AST 11 U/L (0-32) 06/25/22 10:05 ALT 10 U/L (0-33) 06/25/22 10:05 Alkaline Phosphatase 99 U/L (35-105) 06/25/22 10:05 Troponin T Baseline 8 ng/L (0-10) 06/25/22 10:05 Troponin T 120 Minute 6.76 ng/L (0-10) 06/25/22 12:12 Delta Troponin T -1.24 ABS# (0-10) L 06/25/22 12:12 Troponin T Hi Sens 6Hr 8.72 ng/L (0-10) 06/25/22 16:32 Troponin T Hi Sens 6Hr Delta 0.72 ng/L (0-12) 06/25/22 16:32 NT-Pro-B Natriuret Pep 1531 pg/mL (0-125) H 06/25/22 10:05 Total Protein 6.9 g/dL (6.6-8.7) 06/25/22 10:05 Albumin 3.9 g/dL (3.5-5.2) 06/25/22 10:05 Globulin 3.0 g/dL (1.3-4.6) 06/25/22 10:05 TSH 0.05 uIU/mL (0.27-4.20) L 06/25/22 12:08 Free T4 1.61 ng/dL (0.82-1.77) 06/25/22 10:05 Free T3 3.4 PG/ML (2.0-4.4) 06/25/22 10:05 Urine Color Yellow (Yellow) 06/25/22 10:23 Urine Appearance Clear (CLEAR) 06/25/22 10:23 Urine pH 7 (5-7) 06/25/22 10:23 Ur Specific Beat[place] 1.005 (1.005-1.030) 06/25/22 10:23 Urine Protein Neg (Negative) 06/25/22 10:23 Urine Glucose (UA) Norm (Normal) 06/25/22 10:23 Urine Ketones Negative (Negative) 06/25/22 10:23 Urine Blood Neg (Negative) 06/25/22 10:23 Urine Nitrate Negative (Negative) 06/25/22 10:23 Urine Bilirubin Neg (Negative) 06/25/22 10:23 Urine Urobilinogen Neg mg/dL (Negative) 06/25/22 10:23 Ur Leukocyte Esterase Negative (Negative) 06/25/22 10:23 Urine RBC None /hpf (0-2) 06/25/22 10:23 Urine WBC None /hpf (0-5) 06/25/22 10:23 Ur Squamous Epith Cells 0-4 /hpf (0-5) H 06/25/22 10:23 Amorphous Sediment Not Reportable 06/25/22 10:23 Urine Bacteria None /hpf (NONE) 06/25/22 10:23 Coronavirus 229E (PCR) Not detected (NOT DETECT) 06/25/22 14:20 SARS-CoV-2 (PCR) Not detected (NOT DETECT) 06/25/22 14:20 Vitals Last Vital Signs Temp 97.9 F 06/26/22 04:00 Pulse 88 06/26/22 04:00 Resp 16 06/26/22 04:00 BP 153/91 06/26/22 00:00 Pulse Ox 95 06/26/22 04:00 O2 Del Method 06/25/22 17:18 Discharge Plan Discharge Patient Disposition: Home Condition: Stable Prescriptions: New metoprolol tartrate 50 mg Tablet 50 mg PO BID Qty: 60 3RF Cardizem LA 120 mg tablet extended release 24 hr 120 mg PO DAILY Qty: 60 3RF Eliquis 5 mg tablet 5 mg PO BID Qty: 90 3RF furosemide [Lasix] 20 mg tablet 10 mg PO DAILY PRN (Reason: edema) Qty: 60 0RF potassium chloride 10 mEq tablet extended release 10 meq PO DAILY PRN (Reason: Only take when you are taking Lasix) Qty: 60 0RF Continued zolpidem 10 mg tablet 10 mg PO BEDTIME PRN (Reason: insomnia) Qty: 30 0RF alprazolam 0.5 mg tablet 0.5 mg PO BID PRN (Reason: anxiety) 30 Days Qty: 60 0RF citalopram 40 mg tablet 40 mg PO DAILY Qty: 30 0RF topiramate 25 mg tablet 25 mg PO BID PRN (Reason: Headache) Qty: 60 0RF sumatriptan succinate 50 mg tablet 50 mg PO ONCE PRN (Reason: Migraine Headache) Qty: 9 0RF Rx Instructions: May repeat dose in 2 hours. No more than 2 doses in 24 hours pramipexole [Mirapex] 0.25 mg tablet 0.25 mg PO BID Qty: 60 0RF lisinopril 20 mg tablet 20 mg PO QAM famotidine 40 mg tablet 40 mg PO BID albuterol sulfate 90 mcg/actuation HFA aerosol inhaler 2 puff INHALATION Q4H PRN (Reason: Shortness Of Breath) lovastatin 20 mg tablet 20 mg PO BEDTIME Discontinued ibuprofen 800 mg tablet 800 mg PO DAILY PRN (Reason: pain) Qty: 30 0RF Discharge Orders: Discharge Order (Routine); Ordered 06/26/22 Ordered By: Frannie Wallace Referrals: Florence Pisano DO [Primary Care Provider] - 2 weeks (Clinic will call with appointment.) Discharge Diet: Cardiac Discharge Activity: Increase activity as tolerated Patient Instructions: Metoprolol (By mouth), Diltiazem (By mouth), Apixaban (By mouth) (Eliquis), A-fib (Atrial Fibrillation) (DC), Opioid Safety Discharge Attestations Time Spent in Discharge Care*: less than 30 min Quality Metrics Clinical Quality Measures [ No reported AMI, CVA or VTE this stay] Coding Level of Care Code Acute Chg FW DC note Diagnoses Atrial fibrillation with RVR I48.91 Acute diastolic heart failure I50.31 Fever R50.9 Benign essential HTN I10
[2022-06-26 08:00] VITALS: BP 136/83; PULSE 80; RESP 19; TEMP 36.4; O2SAT 95
[2022-06-26] MEDS: metoprolol tartrate 50 mg Tablet PO (09:11)
[2022-06-26] MEDS: famotidine 20 mg Tablet 40 MG PO (09:12)
[2022-06-26] MEDS: pramipexole 0.25 mg Tablet PO (09:12)
[2022-06-26] MEDS: citalopram 20 mg Tablet 40 MG PO (09:12)
== END 2022-06-26 09:46 | disposition home or self-care (01) ==
LOC: ER 11:05 → MEDSURG 15:16
PROVIDERS: Nurse Practitioner Family; Admitting Provider Internal Medicine; Emergency Provider Family Medicine; PCP Family Medicine; Visit Provider Internal Medicine
DX: I48.91 Unspecified atrial fibrillation (principal); I11.0 Hypertensive heart disease with heart failure; I50.31 Acute diastolic (congestive) heart failure; R50.9 Fever, unspecified; M79.89 Other specified soft tissue disorders; E78.5 Hyperlipidemia, unspecified; E11.9 Type 2 diabetes mellitus without complications; E66.9 Obesity, unspecified; Z68.43 Body mass index [BMI] 50.0-59.9, adult; G47.30 Sleep apnea, unspecified; F17.210 Nicotine dependence, cigarettes, uncomplicated
CPT/HCPCS: 36415; 71045; 80048; 80053; 81001; 83735; 83880; 84439; 84443; 84481; 84484; 85025; 85610; 85730; 87635; 93005; 93970; 96372; 96374; 96375; 99285; C8929; G0378; J1650; J1940; J3490; Q9956

== ENCOUNTER → 2022-09-06 09:16 | Outpatient (BNVA) | payer MEDICARE, MEDICAID, SELFPAY | PROVIDERS: PCP Family Medicine; Visit Provider Internal Medicine Cardiovascular Disease | DX: I48.91 Unspecified atrial fibrillation (principal); Z79.01 Long term (current) use of anticoagulants; I11.0 Hypertensive heart disease with heart failure; I50.31 Acute diastolic (congestive) heart failure; E78.5 Hyperlipidemia, unspecified; G47.33 Obstructive sleep apnea (adult) (pediatric); F17.219 Nicotine dependence, cigarettes, with unspecified nicotine-induced disorders | CPT/HCPCS: 99204; Q3014 ==

== ENCOUNTER → 2022-11-05 11:56 | Outpatient (BNVA) | payer MEDICARE, MEDICAID, SELFPAY | PROVIDERS: PCP Family Medicine; Visit Provider Family Medicine | DX: I48.91 Unspecified atrial fibrillation (principal); F41.8 Other specified anxiety disorders; E78.5 Hyperlipidemia, unspecified; G25.81 Restless legs syndrome; G43.009 Migraine without aura, not intractable, without status migrainosus; I50.9 Heart failure, unspecified; R79.89 Other specified abnormal findings of blood chemistry; I50.31 Acute diastolic (congestive) heart failure | CPT/HCPCS: 80048; 83735; 83880; 84443 ==

== ENCOUNTER → 2022-11-15 12:28 | Outpatient (BNVA) | payer MEDICARE, MEDICAID, SELFPAY | PROVIDERS: PCP Family Medicine; Visit Provider Nurse Practitioner Family | DX: I48.19 Other persistent atrial fibrillation (principal); I11.0 Hypertensive heart disease with heart failure; I50.20 Unspecified systolic (congestive) heart failure; F17.210 Nicotine dependence, cigarettes, uncomplicated; Z79.01 Long term (current) use of anticoagulants | CPT/HCPCS: 99214 ==

== ENCOUNTER → 2023-03-17 10:02 | Outpatient (BNVA) | payer MEDICARE, MEDICAID, SELFPAY | PROVIDERS: PCP Family Medicine; Visit Provider Family Medicine | DX: I50.20 Unspecified systolic (congestive) heart failure (principal); E78.5 Hyperlipidemia, unspecified; I48.19 Other persistent atrial fibrillation | CPT/HCPCS: 80053; 80061; 83880; 84439; 84443 ==

== ENCOUNTER → 2023-05-12 10:16 | Outpatient (BNVA) | payer MEDICARE, MEDICAID, SELFPAY | PROVIDERS: PCP Family Medicine; Visit Provider Nurse Practitioner Family | DX: I48.19 Other persistent atrial fibrillation (principal); Z79.01 Long term (current) use of anticoagulants; I11.0 Hypertensive heart disease with heart failure; I50.20 Unspecified systolic (congestive) heart failure; F17.210 Nicotine dependence, cigarettes, uncomplicated | CPT/HCPCS: 99214 ==

== ENCOUNTER → 2023-05-27 10:36 | Outpatient (BNVA) | payer MEDICARE, MEDICAID, SELFPAY | PROVIDERS: PCP Family Medicine; Visit Provider Nurse Practitioner Family | DX: I50.20 Unspecified systolic (congestive) heart failure (principal); F17.210 Nicotine dependence, cigarettes, uncomplicated | CPT/HCPCS: 99214 ==

== ENCOUNTER → 2023-07-22 14:55 | Outpatient (BNVA) | payer MEDICARE, MEDICAID, SELFPAY | PROVIDERS: PCP Family Medicine; Visit Provider Family Medicine | DX: G47.10 Hypersomnia, unspecified (principal); I48.91 Unspecified atrial fibrillation; F41.8 Other specified anxiety disorders; G47.00 Insomnia, unspecified; Z12.31 Encounter for screening mammogram for malignant neoplasm of breast; I50.20 Unspecified systolic (congestive) heart failure; I10 Essential (primary) hypertension | CPT/HCPCS: 80048; 83880 ==

== ENCOUNTER 2023-10-04 20:00 | Outpatient (CLI) | payer MEDICARE, MEDICAID, SELFPAY | END 2023-10-04 20:01 | disposition home or self-care (01) | LOC: SLEEP 10-05 05:54 | PROVIDERS: PCP Family Medicine; Visit Provider Family Medicine | DX: G47.33 Obstructive sleep apnea (adult) (pediatric) (principal); R09.02 Hypoxemia; G47.10 Hypersomnia, unspecified | CPT/HCPCS: 95810 ==

== ENCOUNTER 2023-10-11 12:39 | Outpatient (CLI) | payer MEDICARE, MEDICAID, SELFPAY ==
--- NOTE | 2023-10-11 13:00 | MM_ITS ---
WS: [id number] BILATERAL 3D TOMOSYNTHESIS DIGITAL SCREENING MAMMOGRAPHY WITH CAD CLINICAL INFORMATION: screening HISTORY: Screening mammogram. No current complaints. COMPARISON: 2017 TECHNIQUE: Bilateral CC and MLO views. FINDINGS: Scattered fibroglandular densities bilaterally. No suspicious focal mass, asymmetry, calcifications, or architectural distortion. No evidence of malignancy. Stable benign calcifications. Biopsy clip LEF T breast. IMPRESSION: MM/[place] [id number] BI-RADS: 2-Benign FOLLOW UP: 1 Year Follow-up Recommend return to annual screening mammography.
== END 2023-10-11 12:40 | disposition home or self-care (01) ==
LOC: MOBLMAM 12:48
PROVIDERS: PCP Family Medicine; Visit Provider Family Medicine
DX: Z12.31 Encounter for screening mammogram for malignant neoplasm of breast (principal)
CPT/HCPCS: 77063; 77067

== ENCOUNTER → 2023-11-10 12:18 | Outpatient (BNVA) | payer MEDICARE, MEDICAID, SELFPAY | PROVIDERS: PCP Family Medicine; Visit Provider Internal Medicine | DX: I11.0 Hypertensive heart disease with heart failure (principal); I50.31 Acute diastolic (congestive) heart failure; F17.210 Nicotine dependence, cigarettes, uncomplicated; E78.5 Hyperlipidemia, unspecified | CPT/HCPCS: 80048; 83880; 99214 ==

== ENCOUNTER 2023-11-18 10:46 | Day surgery (SDC) | payer MEDICARE, MEDICAID, SELFPAY ==
[2023-11-16 15:37] VITALS: BMI 54.9
[2023-11-18] VITALS (7 sets, daily range): BP systolic 79–117; BP diastolic 60–84; PULSE 91–105; RESP 12–22; TEMP 36.1–36.5; O2SAT 97–99; BMI 54.9
--- NOTE | 2023-11-18 11:26 | P.ANESASSM_ITS ---
Pre-Anesthetic Assessment Height/Weight: Height 1.65 m Weight 149.685 kg Temp Pulse Resp BP Pulse Ox O2 Del Method 97.7 F 105 H 22 H 117/75 97 Room Air 11/18/23 11:24 11/18/23 11:24 11/18/23 11:24 11/18/23 11:24 11/18/23 11:24 11/18/23 11:24 Operation Date: 11/18/23 12:00 Proposed Procedures p Cardioversion(Not Applicable) - Derian Valencia EVELYNE(Not Applicable) - Cedric Stover M.D Social Tobacco and No alcohol Exam alert, oriented x 3 and clear to auscultation bilaterally Irregular, rapid rhythm; no discernable M/G/R's Airway Submandibular: within normal limits Cervical ROM: Other (limited by cervical girth ) Mallampati: Class II Pulmonary Chronic Obstructive Pulmonary Disease and Sleep Apnea CV/HEM Atrial Fibrillation and Hypertension GI Gastroesophageal Reflux Disease (well controlled) Metabolic Diabetes Mellitus, Hyperlipidemia and Morbid Obesity Anesthetic Plan ASA status: 4E Anesthesia: MAC Medications/Allergies Home Medications Medication Instructions Recorded Confirmed Last Taken Type alprazolam 0.5 mg tablet 0.5 mg PO BID PRN anxiety 30 days 07/22/23 11/16/23 11/15/23 Rx #60 tabs apixaban 5 mg tablet (Eliquis) 5 mg PO BID #60 tabs 07/22/23 11/16/23 11/16/23 Rx citalopram 40 mg tablet 40 mg PO DAILY #90 tabs 07/22/23 11/16/23 11/16/23 Rx zolpidem 10 mg tablet 10 mg PO BEDTIME PRN insomnia #30 07/22/23 11/16/23 11/10/23 Rx tabs metolazone 2.5 mg tablet 2.5 mg PO DAILY #5 tabs 07/25/23 11/16/23 11/10/23 Rx sacubitril 97 mg-valsartan 103 mg 1 tab PO BID #180 tabs 07/25/23 11/16/23 11/16/23 Rx tablet furosemide 40 mg tablet 40 mg PO DAILY edema #90 tabs 10/10/23 11/16/23 11/10/23 Rx Titrating CPAP set to 6-16 with #1 ea 10/11/23 11/16/23 11/16/23 Rx mask and supplies diltiazem HCl 60 mg tablet 60 mg PO QID #360 tabs 11/10/23 11/16/23 11/16/23 Rx (Cardizem) acetaminophen 500 mg tablet 500 mg PO QID PRN Pain 11/16/23 11/16/23 Unknown History albuterol sulfate 90 mcg/actuation 2 puff inhalation Q4H PRN 11/16/23 11/16/23 11/16/23 History aerosol inhaler Shortness Of Breath famotidine 40 mg tablet 40 mg PO BID 11/16/23 11/16/23 11/10/23 History lovastatin 20 mg tablet 20 mg PO BEDTIME 11/16/23 11/16/23 11/10/23 History pramipexole 0.25 mg tablet 0.25 mg PO BID 11/16/23 11/16/23 11/10/23 History sumatriptan succinate 50 mg tablet 50 mg PO DAILY PRN Migraine 11/16/23 11/16/23 Unknown History Headache topiramate 25 mg tablet 25 mg PO BID PRN Migraine Headache 11/16/23 11/16/23 Unknown History Allergies Allergy/AdvReac Type Severity Reaction Status Date / Time gabapentin Allergy ADR-Halluci Verified 11/10/23 12:42 [facility] Anesthesia Medical History Atrial fibrillation Systolic CHF with reduced left ventricular function, NYHA class 2 History of chronic back pain History of kidney stones Obesity Fever Atrial fibrillation with RVR Dyslipidemia History of sleep apnea Type 2 diabetes mellitus, without long-term current use of insulin Insomnia Migraine without aura Benign essential HTN Mixed anxiety and depressive disorder Left carpal tunnel syndrome History of uterine fibroid Surgical History History of carpal tunnel surgery History of shoulder surgery Reverse shoulder on right History of carpal tunnel release On left History of bariatric surgery gastric sleeve - 2017 History of total right hip arthroplasty H/O hysterectomy for benign disease History of cholecystectomy Family History Grandfather Myocardial infarction Father CAD (coronary artery disease) Mother Stroke Diabetes Hypertension Other Cancer Social History Smoking and tobacco/nicotine status: current every day tobacco/nicotine user cigarettes Packs smoked per day: 1 Years cigarettes smoked: 41 Alcohol intake: never Substance/Drug Use: former Data Anesthesia Cardiac Studies: Echocardiogram 06/25/22
--- NOTE | 2023-11-18 11:27 | ECG_ITS ---
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 Measurements Intervals [place] Rate: 99 P: 0 [place]: 0 QRS: 21 QRSD: 107 T: 125 QT: 374 QTc: 481 Interpretive Statements ATRIAL FIBRILLATION NONSPECIFIC T-WAVE ABNORMALITY Compared to ECG 06/25/2022 17:06:28 T-wave abnormality now present Intraventricular conduction delay no longer present Electronically Signed On 11-18-2023 17:36:34 CDT by Denice Moreno M.D. [id number]
--- NOTE | 2023-11-18 11:30 | P.HPUD_ITS ---
Surgery/Procedure H&P Update DATE OF PROCEDURE: November 18, 2023 DATE H&P PERFORMED: 11/10/23 H&P UPDATE INFORMATION: I have reviewed H&P completed within last 30 days, I have examined patient prior to procedure and Changes to prior documentation as noted here CHANGES TO PREVIOUS DOCUMENTATION: Patient was seen in the office last week and was in A-fib with RVR. She did not want to go to the emergency room. She was put on chain maker machine and started on rate limiting medications. However chain maker machine showing persistently elevated heart rate with episodes of heart rates going upto 190bpm. Plan for EVELYNE cardioversion PREOP DIAGNOSIS: Atrial fibrillation with RVR PRIMARY INDICATION FOR PROCEDURE: Atrial fibrillation with RVR PLANNED PROCEDURE: Operation Date: 11/18/23 12:00 Proposed Procedures p Cardioversion(Not Applicable) - Cedric Stover M.D s EVELYNE(Not Applicable) - Cedric Stover M.D Anesthesia team available for sedation.
--- NOTE | 2023-11-18 11:33 | USCV_ITS ---
Mervin Reyes Age: 53 Gender: F : 1970 Exam Date: 11/18/2023 12:20 Ordering Phys: Cedric Stover M.D ([email or web address]) Technologist: Katie Munson Exam Location: [facility] – [place] Indication: AFIB. EVELYNE W/CV BP: 130 / 78 HR: 85 Rhythm: Atrial fibrillation Technical Quality: Adequate MEASUREMENTS (Male / Female) Normal Values Medications Complications Proc. Components After anesthesia team administered sedation, we proceeded with advancing probe. FINDINGS Left Ventricle Right Ventricle Right Atrium Left Atrium LA Appendage IA Septum Mitral Valve Aortic Valve Tricuspid Valve Pulmonic Valve Pericardium Aorta CONCLUSIONS LV systolic function is mildly reduced. LV systolic normal with EF of 55 to 60%. Structurally normal mitral valve. Mild mitral regurgitation No left atrial appendage thrombus seen Cedric Stover MD (Electronically Signed) Final Date: 27 November 2023 12:01 S
[2023-11-18] MEDS: sodium chloride 0.9% 1,000 ML 30 ML IV (12:10)
--- NOTE | 2023-11-18 12:32 | P.PCN_ITS ---
Procedure Note: Date of procedure: 11/18/23 Pre-procedure diagnosis: Atrial fibrillation with RVR Post-procedure diagnosis: same Procedure: Procedure detail: After anesthesia team sedated patient, we proceeded with inserting EVELYNE probe. Left atrial appendage thrombus was ruled out. We then proceeded DCCV cardioversion. 3 attempts made with 200J synchronized shocks. However all attempts were unsuccessful to convert her back to normal rhythm. Patient staying in atrial fibrillation with RVR. Performing Provider: Cedric Stover Complications: None Condition: stable Disposition: same day (Home) Coding Level of Care Code Acute Code for [facility] Pedro
--- NOTE | 2023-11-18 12:33 | ECG_ITS ---
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 Measurements Intervals [place] Rate: 83 P: 0 VT: 0 QRS: 32 QRSD: 97 T: 123 QT: 381 QTc: 450 Interpretive Statements ATRIAL FIBRILLATION LOW QRS VOLTAGE IN PRECORDIAL LEADS [QRS DEFLECTION < 1.0 mV IN CHEST LEADS] NONSPECIFIC T-WAVE ABNORMALITY Compared to ECG 11/18/2023 11:27:49 Low QRS voltage now present T-wave abnormality still present Electronically Signed On 11-18-2023 17:38:04 CDT by Denice Moreno M.D. [id number]
--- NOTE | 2023-11-18 13:37 | PC.NURSE ---
3 shocks at 200J delivered, unsuccessful cardioversion
== END 2023-11-18 13:21 | disposition home or self-care (01) ==
PROVIDERS: PCP Family Medicine; Visit Provider Internal Medicine
PROC: 5A2204Z Restoration of Cardiac Rhythm, Single (ICD-10-PCS; principal; 2023-11-18 12:00)
PROC: (CPT 93312; 2023-11-18 12:00)
DX: I48.91 Unspecified atrial fibrillation (principal); I11.0 Hypertensive heart disease with heart failure; I50.20 Unspecified systolic (congestive) heart failure; E66.01 Morbid (severe) obesity due to excess calories; Z68.43 Body mass index [BMI] 50.0-59.9, adult; E78.5 Hyperlipidemia, unspecified; G47.30 Sleep apnea, unspecified; F17.210 Nicotine dependence, cigarettes, uncomplicated; E11.9 Type 2 diabetes mellitus without complications
CPT/HCPCS: 92960; 93005; 93312; 93320; 93325; J2371; J2704; J7030

== ENCOUNTER 2023-11-28 11:58 | Outpatient (CLI) | payer MEDICARE, MEDICAID, SELFPAY ==
--- NOTE | 2023-11-28 12:15 | USCV_ITS ---
Summer Mervin Age: 53 Gender: F : 1970 Exam Date: 11/28/2023 12:15 Ordering Phys: Cedric Stover M.D ([email or web address]) Technologist: RAVI [place] [facility] [place]: CP, SOB BP: 124 / 70 HR: 207 Rhythm: Atrial fibrillation Technical Quality: Adequate MEASUREMENTS (Male / Female) Normal Values 2D ECHO LV Diastolic Diameter PLAX 5.0 cm 4.2 - 5.9 / 3.9 - 5.3 cm IVS Diastolic Thickness 1.3 cm 0.6 - 1.0 / 0.6 - 0.9 cm IVS Systolic Thickness 1.8 cm LVPW Diastolic Thickness 1.0 cm 0.6 - 1.0 / 0.6 - 0.9 cm LVPW Systolic Thickness 2.2 cm LVOT Diameter 2.4 cm LV Ejection Fraction 2D Teich 79.8 % LV Ejection Fraction MOD 2C 34.4 % LV Ejection Fraction 2C AL 33.6 % LA Diameter 4.3 cm RA Systolic Volume 4C AL 89.1 ml RA Systolic Volume 4C MOD 83.7 ml LA Sys Volume AL 69.6 cm cubed LA Sys Volume Index AL 20.5 cm cubed/m squared Aorta at Sinotubular Diameter 2.8 cm IVC Diameter 1.7 cm M-MODE LA Ao Ratio MM 1.0 AV Cusp Separation MM 1.8 cm DOPPLER AV Peak Velocity 114.0 cm/s LVOT Peak Velocity 77.0 cm/s AV Area Cont Eq vti 3.7 cm squared AV Area Cont Eq pk 2.9 cm squared MV Peak Velocity 123.0 cm/s MV Area PHT 3.7 cm squared Mitral E to A Ratio 15.0 TV Peak Velocity 198.7 cm/s TR Peak Velocity 236.5 cm/s TR Peak Gradient 22.4 mmHg TR Mean Velocity 181.0 cm/s TR Mean Gradient 15.4 mmHg TR Velocity Time Integral 57.5 cm Right Atrial Pressure 3.0 mmHg Pulmonary Artery Systolic Pressu 25.4 mmHg PV Peak Velocity 85.5 cm/s RV Ejection Time 0.3 s FINDINGS Left Ventricle Left ventricle is normal size. LV systolic function is normal with EF 55 to 60%. No regional wall motion normalities are seen. Right Ventricle Normal in size and function Right Atrium Normal in size Left Atrium Normal in size Mitral Valve Structurally normal heart valve. Mild mitral regurgitation Aortic Valve Grossly normal. No significant stenosis or regurgitation. Tricuspid Valve Pulmonary artery systolic pressure is normal Pulmonic Valve Not well visualized Pericardium Normal Aorta Normal in size IVC Not well visuailized CONCLUSIONS Technically limited quality echocardiogram because of poor ultrasonic windows. LV systolic function is normal with EF of 55-60% Mild mitral regurgitation Cedric Stover MD (Electronically Signed) Final Date: 12 December 2023 18:19 S
== END 2023-11-28 11:59 | disposition home or self-care (01) ==
LOC: RAD 11:59
PROVIDERS: PCP Family Medicine; Visit Provider Internal Medicine
DX: R07.9 Chest pain, unspecified (principal); R06.02 Shortness of breath
CPT/HCPCS: 93306

== ENCOUNTER → 2023-12-20 12:40 | Outpatient (BNVA) | payer MEDICARE, MEDICAID, SELFPAY | PROVIDERS: PCP Family Medicine; Visit Provider Internal Medicine | DX: I11.0 Hypertensive heart disease with heart failure (principal); I50.31 Acute diastolic (congestive) heart failure; I48.91 Unspecified atrial fibrillation; F17.210 Nicotine dependence, cigarettes, uncomplicated; Z79.01 Long term (current) use of anticoagulants | CPT/HCPCS: 99214 ==

== ENCOUNTER → 2024-03-08 09:25 | Outpatient (BNVA) | payer MEDICARE, MEDICAID, SELFPAY | PROVIDERS: PCP Family Medicine; Visit Provider Nurse Practitioner Family | DX: I48.19 Other persistent atrial fibrillation (principal); I50.20 Unspecified systolic (congestive) heart failure; I45.9 Conduction disorder, unspecified; R94.31 Abnormal electrocardiogram [ECG] [EKG] | CPT/HCPCS: 93005; 99214 ==

== ENCOUNTER → 2024-05-10 10:24 | Outpatient (BNVA) | payer MEDICARE, MEDICAID, SELFPAY | PROVIDERS: Visit Provider Nurse Practitioner Family | DX: I48.19 Other persistent atrial fibrillation (principal); I49.8 Other specified cardiac arrhythmias; I44.0 Atrioventricular block, first degree; I45.89 Other specified conduction disorders; R94.31 Abnormal electrocardiogram [ECG] [EKG] | CPT/HCPCS: 93005; 99214 ==

== ENCOUNTER → 2024-06-14 16:11 | Outpatient (BNVA) | payer MEDICARE, MEDICAID, SELFPAY | DX: E66.01 Morbid (severe) obesity due to excess calories (principal); Z68.43 Body mass index [BMI] 50.0-59.9, adult; R13.10 Dysphagia, unspecified | CPT/HCPCS: 80053; 84439; 84443; 84481 ==

== ENCOUNTER → 2024-09-10 14:04 | Outpatient (BNVA) | payer MEDICARE, MEDICAID, SELFPAY | PROVIDERS: Visit Provider Internal Medicine | DX: I50.31 Acute diastolic (congestive) heart failure (principal); I48.91 Unspecified atrial fibrillation; F17.210 Nicotine dependence, cigarettes, uncomplicated | CPT/HCPCS: 99214 ==

== ENCOUNTER 2024-09-17 13:00 | Outpatient (CLI) | payer MEDICARE, MEDICAID, SELFPAY ==
--- NOTE | 2024-09-17 13:15 | CT_ITS ---
WS: [id number] CT HEAD WITH AND WITHOUT CONTRAST HISTORY: G44.83 - Primary cough headache TECHNIQUE: Noncontrast 3.0 mm axial images obtained from the vertex to the skull base. Additional adela ging performed at 2.5 mm axial images status post IV contrast. Bone and soft tissue windows are revie wed. All CT scans at [facility] use at least one of these dose optimization techniques: autom ated exposure control; mA and/or kV adjustment per patient size (includes targeted exams where dose i s matched to clinical indication); or iterative reconstruction. CONTRAST: Omnipaque 350; 100 mL IV. DLP: 2144.38 mGy.cm COMPARISON: 10/18/2020 No acute intracranial hemorrhage, edema or midline shift. Mild volume loss and small vessel disease. No prior infarct. Mild ectopia of the cerebellar tonsils. Empty sella turcica. No enhancing mass or vascular malformations identified. Dural venous sinuses are normally enhancing. Visualized k[place] of [place] is unremarkable. Paranasal sinuses as visualized: Clear. Mastoid air cells: Clear. Calvarium and scalp: Intact. CT/CT head wo/w con [id number] IMPRESSION: 1. No intracranial hemorrhage or edema. 2. No enhancing mass or vascular malformation. 3. Mild cerebral atrophy and small vessel disease. 4. Mild ectopia of the cerebellar tonsils.
[2024-09-17] MEDS: iohexol 350 mg/mL 500 mL Btl (per mL) IV (13:18)
== END 2024-09-17 13:01 | disposition home or self-care (01) ==
PROVIDERS: Visit Provider Registered Nurse
DX: G44.83 Primary cough headache (principal); G31.9 Degenerative disease of nervous system, unspecified; R93.0 Abnormal findings on diagnostic imaging of skull and head, not elsewhere classified
CPT/HCPCS: 70470

== ENCOUNTER → 2025-01-10 14:12 | Outpatient (BNVA) | payer MEDICARE, MEDICAID, SELFPAY | PROVIDERS: Visit Provider Registered Nurse | DX: N39.0 Urinary tract infection, site not specified (principal) | CPT/HCPCS: 81000; 87086 ==

== ENCOUNTER → 2025-02-27 10:38 | Outpatient (BNVA) | payer MEDICARE, MEDICAID, SELFPAY | PROVIDERS: PCP Registered Nurse; Visit Provider Registered Nurse | DX: I10 Essential (primary) hypertension (principal); F41.8 Other specified anxiety disorders | CPT/HCPCS: 80048; 84439; 84443 ==

== ENCOUNTER → 2025-03-05 10:25 | Outpatient (BNVA) | payer MEDICARE, MEDICAID, SELFPAY | PROVIDERS: PCP Registered Nurse; Referring Provider Registered Nurse; Visit Provider Internal Medicine | DX: E05.90 Thyrotoxicosis, unspecified without thyrotoxic crisis or storm (principal); I48.91 Unspecified atrial fibrillation; I50.9 Heart failure, unspecified | CPT/HCPCS: 99204 ==

== ENCOUNTER → 2025-03-14 12:54 | Outpatient (BNVA) | payer MEDICARE, MEDICAID, SELFPAY | PROVIDERS: PCP Registered Nurse; Visit Provider Internal Medicine | DX: I11.0 Hypertensive heart disease with heart failure (principal); I50.9 Heart failure, unspecified; I48.20 Chronic atrial fibrillation, unspecified; Z79.01 Long term (current) use of anticoagulants | CPT/HCPCS: 99214 ==

== ENCOUNTER 2025-03-18 11:47 | Outpatient (CLI) | payer MEDICARE, MEDICAID, SELFPAY ==
--- NOTE | 2025-03-18 12:15 | US_ITS ---
WS: [id number] THYROID ULTRASOUND REASON FOR EXAM: see below TECHNIQUE: Grayscale and Doppler ultrasound examination of the thyroid gland. FINDINGS: RIGHT: Right thyroid gland measures 4.8 cm x 2.2 cm x 2.2 cm. Right thyroid volume equals 11.0 ccm3. Markedly heterogeneous echotexture. No dominant nodule. LEFT: Left thyroid gland measures 6.2 cm x 3.0 cm x 3.1 cm. Left thyroid volume equals 27.6 ccm3. Markedly heterogeneous echotexture. Complex dominant nodule in the superior left lobe of the thyroid. Central sonolucency with frond-like/nodular margins well defined. 2.5 x 1.9 x 3.1 cm. Thyroid isthmus: 0.8 mm. Markedly heterogeneous echotexture. Complex nodule to the right of midline. Central sonolucency with well-defined nodular and frond-like margins. 2.6 x 2.3 x 2.8 cm. Small, presumed old reactive, lymph nodes in the cervical chain and submandibular chain bilaterally. US/US thyroid [id number] IMPRESSION: Thyromegaly. Multinodular goiter with dominant nodule in the isthmus and in the left lobe. N o neoplastic features.
== END 2025-03-18 11:48 | disposition home or self-care (01) ==
LOC: RAD 11:48
PROVIDERS: PCP Registered Nurse; Visit Provider Internal Medicine
DX: I50.31 Acute diastolic (congestive) heart failure (principal); I48.19 Other persistent atrial fibrillation; E05.90 Thyrotoxicosis, unspecified without thyrotoxic crisis or storm; E04.2 Nontoxic multinodular goiter
CPT/HCPCS: 76536